=== PATIENT | male | born 1965 | race Caucasian/White ===

== ENCOUNTER → 2018-02-04 | Outpatient (CLI) | payer BC ==
--- NOTE | 2018-02-05 07:15 | US ---
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 EXAM MEASUREMENTS: Post Void Residual Volume: 11.01 mL. Post void dimensions measure 3.8 x 2.5 x 2.2 cm. Prevoid urinar y bladder is incompletely distended with no urinary bladder wall thickening as the urinary bladder wa ll measures 3 mm. * Normal Post Void Residual (less than 50ml): 11.01 IMPRESSION: There is no abnormal post void residual within the incompletely distended urinary shadia ivey
== END | disposition home or self-care (01) ==
LOC: RADUSWWP 16:01
PROVIDERS: ATTEND Family Medicine
DX: N40.1 Benign prostatic hyperplasia with lower urinary tract symptoms (principal)
CPT/HCPCS: 76857

== ENCOUNTER 2018-03-15 06:52 | Day surgery (SDC) | payer BC ==
[2018-03-13 14:59] VITALS: BMI 43.1
[~2018-03-15 06:52] MED LIST: LACTATED RINGERS 1,000 ML IV SCH
[2018-03-15 07:24] VITALS: RESP 16; TEMP 97.1
[2018-03-15] MEDS ORDERED: LIDOCAINE 1% 20 ML VIAL (10MG/ML) FOR IV START SQ ONE (07:25)
[2018-03-15 07:27] LABS: Glucose,Whole Blood 85 mg/dL (75-99)
[2018-03-15] MEDS ORDERED: PROPOFOL 10 MG/ML 20 ML VIAL IV ONE (08:11)
[2018-03-15] MEDS ORDERED: LIDOCAINE 1% INJ 10MG/ML (20 ML MDV) ONE (08:11)
--- NOTE | 2018-03-15 08:27 | P.PCN ---
Date of Procedure: 03/15/18 Procedure(s) Performed: BRIEF HISTORY: Patient is a 52-year-old pleasant white male, scheduled for an elective colonoscopy as a part of screening for colorectal neoplasia. PROCEDURE PERFORMED: Colonoscopy with biopsy. PREOPERATIVE DIAGNOSIS: Screening for colon cancer. IV sedation per Anesthesia. PROCEDURE: After informed consent was obtained, the patient, was brought into the endoscopy unit. IV sedation was administered by Anesthesia under continuous monitoring. Digital rectal examination was normal. Initially the Olympus CF- 160 flexible video colonoscope was then inserted in the rectum, gradually advanced into the cecum without any difficulty. Careful examination was performed as the scope was gradually being withdrawn. Ileocecal valve and the appendiceal orifice were visualized and appeared normal. Prep was excellent. Mucosa of the cecum, ascending colon, transverse colon, descending colon appeared normal. In the sigmoid colon there was a 2-3 mm sessile polyp removed by cold biopsy. In the proximal rectum there was a 3-4 mm sessile polyp removed by cold biopsy. Rest of the sigmoid colon, and rectum appeared normal. Retroflexion was performed in the rectum and no lesions were seen. The patient tolerated the procedure well. IMPRESSION: 2-3 mm sessile sigmoid colon polyp status post removal by cold biopsy 3-4 mm proximal rectal polyp status post removal by cold biopsy Rest of the colon appeared normal RECOMMENDATIONS: Findings of this examination were discussed with the patient as well as his family. He was advised to follow with the biopsy results. If the biopsy shows adenoma he can have a repeat colonoscopy in 5 years.
[2018-03-15 08:42] LABS: Glucose,Whole Blood 76 mg/dL (75-99)
[2018-03-15 08:52] VITALS: BP 116/70; PULSE 66
== END 2018-03-15 09:10 | disposition home or self-care (01) ==
LOC: ORWHC2ENDO 06:52
PROVIDERS: ATTEND Internal Medicine Gastroenterology
DX: Z12.11 Encounter for screening for malignant neoplasm of colon (principal); D12.5 Benign neoplasm of sigmoid colon; D12.8 Benign neoplasm of rectum; E11.9 Type 2 diabetes mellitus without complications; I10 Essential (primary) hypertension; E78.5 Hyperlipidemia, unspecified; G47.33 Obstructive sleep apnea (adult) (pediatric); Z79.4 Long term (current) use of insulin; Z79.899 Other long term (current) drug therapy
CPT/HCPCS: 88305; 45380; J2001; J2704

== ENCOUNTER 2024-01-26 02:19 | Inpatient (IN) | payer BC, OTHER ==
[2024-01-26 02:48] LABS: Glucose,Whole Blood 338 mg/dL (70-110)
--- NOTE | 2024-01-26 02:56 | ED ---
Neuro HPI - General Chief Complaint: Neuro Symptoms/Deficit Stated Complaint: Numbness, weakness in legs and arm Time Seen by Provider: 01/26/24 02:41 Source: patient Mode of arrival: wheelchair Limitations: no limitations - History of Present Illness Is the patient presenting with stroke symptoms?: Yes Last Known Well Date: 01/24/24 Last Known Well Time: 13:00 -: hour(s) Initial Comments: This patient is a 58-year-old man who presents to have evaluation for what he suspects is a stroke. The patient states that his last known well time was January 23 at just afternoon. He states that he started feeling numb on the left side of his face his left arm and left leg. The patient states that he also was having a difficult time walking. He states that while he was watching the football game that night the symptoms became more noticeable than in the afternoon. The patient had actually fallen at home and has he states a couple of abrasions. He does not believe that any other injuries occurred. When the symptoms had not resolved he decided to come in [facility] for further evaluation. Patient relates that he has history of hypertension and diabetes but that these conditions have not been treated for approximately 2 years as he lost his insurance when he left his previous job. Location: left face, left arm, left leg History of same: No Place: home Severity: mild Quality: numb Improves With: none Worsens With: none On Anticoagulants: No Associated Symptoms: denies other symptoms Treatments Prior to Arrival: none - Related Data Home Medications: Previous Rx's Medication Instructions Recorded Aspirin 81 mg PO DAILY tab 01/30/24 Atorvastatin [Lipitor] 80 mg PO HS #30 tab 01/30/24 Clopidogrel [Plavix] 75 mg PO DAILY #21 tab 01/30/24 Insuln Asp Prt/Insulin Aspart 22 unit SQ AC-LUNCH #1 each 01/30/24 [NovoLOG MIX 70-30 VIAL] Insuln Asp Prt/Insulin Aspart 38 unit SQ AC-BID #1 each 01/30/24 [NovoLOG MIX 70-30 VIAL] Lisinopril-Hctz 20-12.5 mg 1 each PO BID #60 tab 01/30/24 [Zestoretic 20-12.5] Metoprolol Tartrate [Lopressor] 50 mg PO BID #60 tab 01/30/24 Naproxen [Naprosyn] 250 mg PO TID PRN #30 tab 01/30/24 metFORMIN HCL [Glucophage] 1,000 mg PO BID-W/MEALS #60 tab 01/30/24 Allergies/Adverse Reactions: Allergies Allergy/AdvReac Type Severity Reaction Status Date / Time No Known Allergies Allergy Verified 01/26/24 09:06 Review of Systems ROS Statement: Those systems with pertinent positive or pertinent negative responses have been documented in the HPI. ROS Other: All systems not noted in ROS Statement are negative. Constitutional: Denies: fever, chills, weakness Eyes: Denies: eye pain, vision change Respiratory: Denies: cough, dyspnea Cardiovascular: Denies: chest pain, palpitations, orthopnea, edema, syncope Gastrointestinal: Denies: abdominal pain, nausea, vomiting, diarrhea, melena, hematochezia Genitourinary: Denies: dysuria, hematuria Musculoskeletal: Denies: back pain Skin: Denies: rash Neurological: Reports: numbness. Denies: headache, weakness, confusion General Exam Limitations: no limitations General appearance: alert, in no apparent distress Head exam: Present: atraumatic, normocephalic Eye exam: Present: normal appearance. Absent: scleral icterus, conjunctival injection ENT exam: Present: normal oropharynx Neck exam: Present: normal inspection, full ROM Respiratory exam: Present: normal lung sounds bilaterally. Absent: respiratory distress, wheezes, rales, rhonchi, stridor, accessory muscle use Cardiovascular Exam: Present: regular rate, normal rhythm, normal heart sounds. Absent: systolic murmur, diastolic murmur, rubs, gallop GI/Abdominal exam: Present: soft. Absent: distended, tenderness, guarding, rebound, rigid, mass Extremities exam: Present: normal inspection, normal capillary refill. Absent: pedal edema, calf tenderness Back exam: Present: normal inspection. Absent: CVA tenderness (R), CVA tenderness (L) Neurological exam: Present: alert, oriented X3, CN II-XII intact. Absent: motor sensory deficit Psychiatric exam: Present: normal affect Skin exam: Present: warm, dry, intact, normal color. Absent: rash Stroke MDM - Lab Data Result diagrams: 01/27/24 13:19 01/26/24 02:58 Lab Results 12/07/24 12/07/24 12/07/24 Range/Units 02:46 02:58 02:58 WBC 8.5 (3.8-10.6) k/uL RBC 5.09 (4.30-5.90) m/uL Hgb 16.1 (13.0-17.5) gm/dL Hct 47.5 (39.0-53.0) % MCV 93.2 (80.0-100.0) fL MCH 31.6 (25.0-35.0) pg MCHC 33.9 (31.0-37.0) g/dL RDW 12.2 (11.5-15.5) % Plt Count 229 (150-450) k/uL MPV 7.2 Neutrophils % 57 % Lymphocytes % 35 % Monocytes % 6 % Eosinophils % 1 % Basophils % 0 % Neutrophils # 4.9 (1.3-7.7) k/uL Lymphocytes # 2.9 (1.0-4.8) k/uL Monocytes # 0.5 (0-1.0) k/uL Eosinophils # 0.1 (0-0.7) k/uL Basophils # 0.0 (0-0.2) k/uL PT 10.1 (10.0-12.5) sec INR 0.9 (<1.2) APTT 22.6 (22.0-30.0) sec Sodium (137-145) mmol/L Potassium (3.5-5.1) mmol/L Chloride (98-107) mmol/L Carbon Dioxide (22-30) mmol/L Anion Gap mmol/L BUN (9-20) mg/dL Creatinine (0.66-1.25) mg/dL Est GFR (CKD-EPI)AfAm (>60 ml/min/1.73 sqM) Est GFR (CKD-EPI)NonAf (>60 ml/min/1.73 sqM) Glucose (74-99) mg/dL POC Glucose (mg/dL) 338 H (70-110) mg/dL POC Glu Production [employer] Sprayer ID [address] Glu mg/dL mg/dL Hemoglobin A1c (<=6.0) % Calcium (8.4-10.2) mg/dL Total Bilirubin (0.2-1.3) mg/dL AST (17-59) U/L ALT (4-49) U/L Alkaline Phosphatase (38-126) U/L Creatine Kinase (55-170) U/L Troponin I (0.000-0.034) ng/mL Total Protein (6.3-8.2) g/dL Albumin (3.5-5.0) g/dL TSH (0.465-4.680) mIU/L 01/26/24 01/26/24 01/26/24 Range/Units 02:58 02:58 02:58 WBC (3.8-10.6) k/uL RBC (4.30-5.90) m/uL Hgb (13.0-17.5) gm/dL Hct (39.0-53.0) % MCV (80.0-100.0) fL MCH (25.0-35.0) pg MCHC (31.0-37.0) g/dL RDW (11.5-15.5) % Plt Count (150-450) k/uL MPV Neutrophils % % Lymphocytes % % Monocytes % % Eosinophils % % Basophils % % Neutrophils # (1.3-7.7) k/uL Lymphocytes # (1.0-4.8) k/uL Monocytes # (0-1.0) k/uL Eosinophils # (0-0.7) k/uL Basophils # (0-0.2) k/uL PT (10.0-12.5) sec INR (<1.2) APTT (22.0-30.0) sec Sodium 130 L (137-145) mmol/L Potassium 3.8 (3.5-5.1) mmol/L Chloride 99 (98-107) mmol/L Carbon Dioxide 23 (22-30) mmol/L Anion Gap 8 mmol/L BUN 13 (9-20) mg/dL Creatinine 0.75 (0.66-1.25) mg/dL Est GFR (CKD-EPI)AfAm >90 (>60 ml/min/1.73 sqM) Est GFR (CKD-EPI)NonAf >90 (>60 ml/min/1.73 sqM) Glucose 347 H (74-99) mg/dL POC Glucose (mg/dL) (70-110) mg/dL POC Glu Production [employer] Sprayer ID Est[address] Glu mg/dL 335 mg/dL Hemoglobin A1c 13.3 H (<=6.0) % Calcium 8.9 (8.4-10.2) mg/dL Total Bilirubin 0.7 (0.2-1.3) mg/dL AST 28 (17-59) U/L ALT 24 (4-49) U/L Alkaline Phosphatase 105 (38-126) U/L Creatine Kinase 421 H (55-170) U/L Troponin I <0.012 (0.000-0.034) ng/mL Total Protein 6.7 (6.3-8.2) g/dL Albumin 4.0 (3.5-5.0) g/dL TSH (0.465-4.680) mIU/L 01/26/24 01/26/24 Range/Units 02:58 06:07 WBC (3.8-10.6) k/uL RBC (4.30-5.90) m/uL Hgb (13.0-17.5) gm/dL Hct (39.0-53.0) % MCV (80.0-100.0) fL MCH (25.0-35.0) pg MCHC (31.0-37.0) g/dL RDW (11.5-15.5) % Plt Count (150-450) k/uL MPV Neutrophils % % Lymphocytes % % Monocytes % % Eosinophils % % Basophils % % Neutrophils # (1.3-7.7) k/uL Lymphocytes # (1.0-4.8) k/uL Monocytes # (0-1.0) k/uL Eosinophils # (0-0.7) k/uL Basophils # (0-0.2) k/uL PT (10.0-12.5) sec INR (<1.2) APTT (22.0-30.0) sec Sodium (137-145) mmol/L Potassium (3.5-5.1) mmol/L Chloride (98-107) mmol/L Carbon Dioxide (22-30) mmol/L Anion Gap mmol/L BUN (9-20) mg/dL Creatinine (0.66-1.25) mg/dL Est GFR (CKD-EPI)AfAm (>60 ml/min/1.73 sqM) Est GFR (CKD-EPI)NonAf (>60 ml/min/1.73 sqM) Glucose (74-99) mg/dL POC Glucose (mg/dL) 294 H (70-110) mg/dL POC Glu Production Metal Sprayer ID Hayden [address] Glu mg/dL mg/dL Hemoglobin A1c (<=6.0) % Calcium (8.4-10.2) mg/dL Total Bilirubin (0.2-1.3) mg/dL AST (17-59) U/L ALT (4-49) U/L Alkaline Phosphatase (38-126) U/L Creatine Kinase (55-170) U/L Troponin I (0.000-0.034) ng/mL Total Protein (6.3-8.2) g/dL Albumin (3.5-5.0) g/dL TSH 3.000 (0.465-4.680) mIU/L - Medical Decision Making This patient is 58-year-old man presenting with symptoms concerning for possible acute ischemic stroke. The patient is worked up here but is outside of the window for thrombolytics. The patient initial CT per my interpretation does not show acute bony injury, acute intracranial hemorrhage or mass effect. There is no definite stroke. The patient will be admitted for further neurology workup. The patient had chest x-ray which I interpreted as negative for acute infiltrate, pneumothorax, congestive heart failure Was pt. sent in by a medical professional or institution ([facility] Bassett, FLATWORK SUPERVISOR, urgent care, hospital, or fpc...) When possible be specific @ -[No] Did you speak to anyone other than the patient for history (EMS, parent, family, police, friend...)? What history was obtained from this source @ -[No] Did you review nursing and triage notes (agree or disagree)? Why? @ -[I reviewed and agree with nursing and triage notes] Were old charts reviewed (outside hosp., previous admission, EMS record, old EKG, old radiological studies, urgent care reports/EKG's, fpc records)? Report findings @ -[No old charts were reviewed] Differential Diagnosis (chest pain, altered mental status, abdominal pain women, abdominal pain men, vaginal bleeding, weakness, fever, dyspnea, syncope, headache, dizziness, GI bleed, back pain, seizure, CVA, palpatations, mental health, musculoskeletal)? @ -[Differential CVA Ischemic stroke, hemorrhagic stroke, brain tumor, atypical migraine, Wernicke's encephalopathy, seizure, multiple sclerosis, meningitis, encephalitis, hypoglycemia, Guillain-Sepulveda, electrolytes disturbance, myasthenia gravis.... This is not meant to be an all-inclusive list EKG interpreted by me (3pts min.). @ -[I interpreted as above] X-rays interpreted by me (1pt min.). @ -[I interpreted as above CT interpreted by me (1pt min.). @ -I interpreted as above U/S interpreted by me (1pt. min.). @ -[None done] What testing was considered but not performed or refused? (CT, X-rays, U/S, labs)? Why? @ -[None] What meds were considered but not given or refused? Why? @ -[None] Did you discuss the management of the patient with other professionals (professionals i.e. , PA, FLATWORK SUPERVISOR, lab, RT, psych nurse, sexual assault social worker, portable trackman, teacher, juvenile officer, manager of case)? Give summary @ -[Case discussed with admitting physician and treatment recommendations incorporated Was smoking cessation discussed for >3mins.? @ -[No] Was critical care preformed (if so, how long)? @ -[Yes, 30 minutes Were there social determinants of health that impacted care today? How? (Homelessness, low income, unemployed, alcoholism, drug addiction, transportation, low edu. Level, literacy, decrease access to med. care, penitentiary, rehab)? @ -[No] Was there de-escalation of care discussed even if they declined (Discuss DNR or withdrawal of care, Hospice)? DNR status @ -[No] What co-morbidities impacted this encounter? (DM, HTN, Smoking, COPD, CAD, Cancer, CVA, ARF, Chemo, Hep., AIDS, mental health diagnosis, sleep apnea, morbid obesity)? @ -[Diabetes, hypertension Was patient admitted / discharged? Hospital course, mention meds given and route, prescriptions, significant lab abnormalities, going to OR and other pertinent info. @ -[See above Undiagnosed new problem with uncertain prognosis? @ -[No] Drug Therapy requiring intensive monitoring for toxicity (Heparin, Nitro, Insulin, Cardizem)? @ -[No] Were any procedures done? @ -[No] Diagnosis/symptom? @ -[Suspected acute ischemic stroke versus TIA Acute hyperglycemia Acute, or Chronic, or Acute on Chronic? @ -[Acute Uncomplicated (without systemic symptoms) or Complicated (systemic symptoms)? @ -[Uncomplicated Side effects of treatment? @ -[No] Exacerbation, Progression, or Severe Exacerbation? @ -[No] Poses a threat to life or bodily function? How? (Chest pain, USA, ID, pneumonia, PE, COPD, DKA, ARF, appy, cholecystitis, CVA, Diverticulitis, Homicidal, S uicidal, threat to staff... and all critical care pts) @ -[Yes, requires further neurology evaluation and treatment - EKG Data -: EKG Interpreted by Me EKG shows normal: sinus rhythm, axis (Normal), intervals (Normal), QRS complexes (Normal) Rate: normal (95 bpm) Interpretation: nonspecific ST-T wave changes Past Medical History Past Medical History: Diabetes Mellitus, Hyperlipidemia, Hypertension, Skin Disorder, Sleep Apnea/CPAP/BIPAP Additional Past Medical History / Comment(s): ECZEMA. NO TX FOR SLEEP APNEA YE T. History of Any Multi-Drug Resistant Organisms: None Reported Additional Past Surgical History / Comment(s): DENTAL IMPLANTS Past Anesthesia/Blood Transfusion Reactions: Motion Sickness Past Psychological History: No Psychological Hx Reported Smoking Status: Never smoker Past Alcohol Use History: Abuse, Daily Past Drug Use History: None Reported - Past Family History Father Family Medical History: Cancer Additional Family Medical History / Comment(s): PROSTATE, URETER CANCER Course Vital Signs 01/26/24 01/26/24 01/26/24 02:23 02:58 03:25 Temperature 97.7 F 98.0 F 98.2 F Pulse Rate 107 H 95 86 Respiratory 16 16 16 Rate Blood Pressure 213/109 182/83 170/78 O2 Sat by Pulse 98 94 L 95 Oximetry 01/26/24 01/26/24 01/26/24 03:44 03:55 04:12 Temperature Pulse Rate 84 84 79 Respiratory 16 16 18 Rate Blood Pressure 165/99 159/91 151/81 O2 Sat by Pulse 94 L 93 L 94 L Oximetry 01/26/24 01/26/24 01/26/24 04:25 04:40 05:10 Temperature Pulse Rate 74 71 79 Respiratory 16 16 18 Rate Blood Pressure 160/80 146/73 193/89 O2 Sat by Pulse 94 L 96 98 Oximetry 01/26/24 01/26/24 01/26/24 05:40 07:06 07:30 Temperature 98.2 F Pulse Rate 71 68 80 Respiratory 16 16 18 Rate Blood Pressure 150/75 161/76 151/95 O2 Sat by Pulse 95 93 L 96 Oximetry 01/26/24 01/26/24 01/26/24 11:01 14:25 16:50 Temperature Pulse Rate 64 67 70 Respiratory 16 18 18 Rate Blood Pressure 143/82 167/93 174/89 O2 Sat by Pulse 96 95 96 Oximetry 01/26/24 01/26/24 01/26/24 18:10 19:10 21:02 Temperature 98.0 F Pulse Rate 73 75 73 Respiratory 20 16 15 Rate Blood Pressure 153/77 168/86 166/86 O2 Sat by Pulse 96 97 97 Oximetry Disposition Clinical Impression: Cerebrovascular accident (CVA), Hyperglycemia due to diabetes mellitus Disposition: ADMITTED IP TO THIS [facility] Condition: Fair Is patient prescribed a controlled substance at d/c from ED?: No
[2024-01-26 03:11] LABS: Basophils % (A) 0 %; Eosinophils # (A) 0.1 k/uL (0-0.7); Eosinophils % (A) 1 %; HCT 47.5 % (39.0-53.0); HGB 16.1 gm/dL (13.0-17.5); Lymphocytes # (A) 2.9 k/uL (1.0-4.8); Lymphocytes % (A) 35 %; MCH 31.6 pg (25.0-35.0); MCHC 33.9 g/dL (31.0-37.0); MCV 93.2 fL (80.0-100.0); Mean Platelet Volume 7.2; Monocytes # (A) 0.5 k/uL (0-1.0); Monocytes % (A) 6 %; Neutrophils # (A) 4.9 k/uL (1.3-7.7); Neutrophils % (A) 57 %; Platelet Count 229 k/uL (150-450); RBC 5.09 m/uL (4.30-5.90); RDW 12.2 % (11.5-15.5); WBC 8.5 k/uL (3.8-10.6)
[2024-01-26] MEDS: LABETALOL 5 MG/ML VIAL MDV IVP STA (03:22)
[2024-01-26 03:23] LABS: INR 0.9 (<1.2); Partial Thromboplastin Time 22.6 sec (22.0-30.0); Prothrombin Time 10.1 sec (10.0-12.5)
[2024-01-26] MEDS: SODIUM CHLORIDE 0.9% 500 ML 500 ML IV STA (03:24)
[2024-01-26 03:30] LABS: ALT 24 U/L (4-49); AST 28 U/L (17-59); African American GFR (CKD) >90 (>60 ml/min/1.73 sqM); Alkaline Phosphatase 105 U/L (38-126); Anion Gap 8 mmol/L; Blood Urea Nitrogen 13 mg/dL (9-20); Calcium 8.9 mg/dL (8.4-10.2); Carbon Dioxide 23 mmol/L (22-30); Chloride 99 mmol/L (98-107); Creatine Kinase 421 U/L (55-170); Glucose 347 mg/dL (74-99); Non-African American GFR(CKD) >90 (>60 ml/min/1.73 sqM); Potassium 3.8 mmol/L (3.5-5.1); Sodium 130 mmol/L (137-145); Total Bilirubin 0.7 mg/dL (0.2-1.3); Total Protein 6.7 g/dL (6.3-8.2)
--- NOTE | 2024-01-26 04:33 | XR ---
EXAM: XR Chest, 2 Views CLINICAL HISTORY: ITS.REASON XR Reason: altered mental status TECHNIQUE: Frontal and lateral views of the chest. COMPARISON: No relevant prior studies available. FINDINGS: Lungs: No pneumonia. Pleural space: Unremarkable. No pneumothorax. Heart: Unremarkable. No cardiomegaly. Mediastinum: Unremarkable. Normal mediastinal contour. Bones/joints: Unremarkable. No acute fracture. IMPRESSION: No pneumonia.
--- NOTE | 2024-01-26 04:35 | CT ---
EXAM: CT Head Without Intravenous Contrast CLINICAL HISTORY: ITS.REASON CT Reason: Neuro deficit, acute, stroke suspected TECHNIQUE: Axial computed tomography images of the head/brain without intravenous contrast. CTDI is 49.2 mGy and DLP is 1243.4 mGy-cm. This CT exam was performed using one or more of the following dose reduction techniques: automated exposure control, adjustment of the mA and/or kV according to patient size, and/or use of iterative reconstruction technique. COMPARISON: No relevant prior studies available. FINDINGS: No acute intracranial hemorrhage. No midline shift or mass effect. The territorial palomares-white matter differentiation is maintained throughout. The ventricles and sulci are commensurate with age. The visualized orbits appear grossly unremarkable. The calvarium is intact. The visualized paranasal sinuses and mastoid air cells are grossly clear. IMPRESSION: No acute intracranial hemorrhage, midline shift, or mass effect.
[2024-01-26] MEDS: INSULIN REGULAR 100 UNIT/ML VIAL (IV) SQ STA (04:57)
[2024-01-26] MEDS: ASPIRIN 81 MG PO STA (04:57)
[2024-01-26 06:09] LABS: Glucose,Whole Blood 294 mg/dL (70-110)
[2024-01-26] MEDS: SODIUM CHLORIDE 0.9% 1,000 ML IV SCH (07:03)
[2024-01-26] MEDS: metFORMIN 500 MG TAB PO SCH (07:28)
[2024-01-26] MEDS: hydroCHLOROthiazide 25 MG TAB PO SCH (08:27)
[2024-01-26] MEDS: atenoloL 25 MG TAB PO SCH (08:27)
[2024-01-26] MEDS: FAMOTIDINE 20 MG/2 ML VIAL IV SCH (08:28)
[2024-01-26] MEDS: lisinopriL 10 MG TAB PO SCH (08:28)
[2024-01-26 11:01] LABS: Glucose,Whole Blood 296 mg/dL (70-110)
--- NOTE | 2024-01-26 13:55 | US ---
EXAMINATION TYPE: US carotid duplex BILAT DATE OF EXAM: 01/26/2024 COMPARISON: NONE CLINICAL INDICATION: Male, 58 years old with history of left sided weakness; Left side weakness. HTN. No prev hx TIA or stroke. Additional History: TECHNIQUE: Grayscale, color Doppler and spectral Doppler evaluation of the bilateral carotid systems and vertebral arteries. Indirect Doppler criteria was utilized. FINDINGS: EXAM MEASUREMENTS: RIGHT: Peak Systolic Velocity (PSV) cm/sec ----- Right CCA: 120.5 ----- Right ICA: 96.9 ----- Right ECA: 147.6 ICA/CCA ratio: 0.8 RIGHT: End Diastole cm/sec ----- Right CCA: 12.3 ----- Right ICA: 11.5 ----- Right ECA: 7.7 LEFT: Peak Systolic Velocity (PSV) cm/sec ----- Left CCA: 107.6 ----- Left ICA: 122.1 ----- Left ECA: 125.3 ICA/CCA ratio: 1.1 LEFT: End Diastole cm/sec ----- Left CCA: 13.9 ----- Left ICA: 12.3 ----- Left ECA: 5.8 VERTEBRALS (direction of flow): Right Vertebral: Antegrade Left Vertebral: Antegrade Rhythm: Normal AIDS SOCIAL WORKER NOTES: Bilateral wall thickening. Elevated CCA velocities and right ECA. Color Doppler imaging shows patency with blood flow throughout the carotid artery. Spectral waveforms are within normal limits. IMPRESSION: 1. Mild bilateral plaque in the carotid bifurcations bilaterally. 2. No significant stenosis within the carotid bifurcations or proximal internal carotid arteries base d on peak systolic velocities and ratios as well as grayscale and color imaging. Criteria for Assigning % of Stenosis / Diameter reduction (Estimation based on the indirect measurements of the internal carotid artery velocities (ICA PSV). 1. Normal (no stenosis)=ICA PSV < 125 cm/s: ratio < 2.0: ICA EDV<40 cm/s. 2. Less than 50% stenosis=ICA PSV < 125 cm/s: ratio < 2.0: ICA EDV<40 cm/s. 3. 50 to 69% stenosis=ICA PSV of 125 to 230 cm/s: ration 2.0 ? 4.0: ICA EDV 40-100 cm/s. 4. Greater than 70% stenosis to near occlusion= ICA PSV > 230 cm/s: ratio > 4.0: ICA EDV > 100 cm/s. 5. Near occlusion= ICA PSV velocities may be low or undetectable: variable ratio and ICA EDV. 6. Total occlusion=unable to detect flow. [facility], , 01/26/2024 1:53 PM
--- NOTE | 2024-01-26 14:57 | P.CNNES ---
History of Present Illness Consult date: 01/26/24 Requesting physician: Aleksey Greenwood Reason for Consult: left sided deficity, suspected ischemic stroke History of Present Illness: This is a 58-year-old gentleman with history of type 2 diabetes, hypertension who is not on regular medication because of financial hardship, obesity who present emergency department because of numbness over the left side. Patient stated that his symptoms began this past in which he felt he is having numbness over the left upper lower extremity also involving the entire left half of the face. He stated that his symptoms progressively got worse that he is having weakness on the left side. Denies any prior history of stroke in the past. He states that he has type 2 diabetes and is supposed to be on Lantus as well as that he has hypertension but he is making very minimal money and get some of his medication from [place] where his mother resides. He does not check his blood pressure at home since he does not have blood pressure cuff. He denies any tobacco use. Denies being on any antiplatelet. He has not followed up with primary care physician in 3 years since he does not have health insurance. Some of the workup during this hospital visit consisted of: Initial serum glucose is 347. I reviewed the rest of the lab workup. CT of the head is reported as no acute intracranial hemorrhage, midline shift or mass effect. I personally reviewed the CT and feel the patient has acute to subacute stroke over the right thalamus and it seems more subacute. Review of Systems per HPI. Past Medical History Past Medical History: Diabetes Mellitus, Hyperlipidemia, Hypertension, Skin Disorder, Sleep Apnea/CPAP/BIPAP Additional Past Medical History / Comment(s): ECZEMA. NO TX FOR SLEEP APNEA YET. History of Any Multi-Drug Resistant Organisms: None Reported Additional Past Surgical History / Comment(s): DENTAL IMPLANTS Past Anesthesia/Blood Transfusion Reactions: Motion Sickness Past Psychological History: No Psychological Hx Reported Smoking Status: Never smoker Past Alcohol Use History: Abuse, Daily Past Drug Use History: None Reported - Past Family History Father Family Medical History: Cancer Additional Family Medical History / Comment(s): PROSTATE, URETER CANCER Medications and Allergies Home Medications Medication Instructions Recorded Confirmed Type No Known Home Medications 01/26/24 01/26/24 History Allergies Allergy/AdvReac Type Severity Reaction Status Date / Time No Known Allergies Allergy Verified 01/26/24 09:06 Physical Examination - Vital Signs Vital Signs: Vital Signs Temp Pulse Resp BP Pulse Ox 01/26/24 14:25 67 18 167/93 95 01/26/24 11:01 64 16 143/82 96 01/26/24 07:30 80 18 151/95 96 01/26/24 07:06 98.2 F 68 16 161/76 93 L 01/26/24 05:40 71 16 150/75 95 01/26/24 05:10 79 18 193/89 98 01/26/24 04:40 71 16 146/73 96 01/26/24 04:25 74 16 160/80 94 L 01/26/24 04:12 79 18 151/81 94 L 01/26/24 03:55 84 16 159/91 93 L 01/26/24 03:44 84 16 165/99 94 L 01/26/24 03:25 98.2 F 86 16 170/78 95 01/26/24 02:58 98.0 F 95 16 182/83 94 L 01/26/24 02:23 97.7 F 107 H 16 213/109 98 Intake and Output 01/25/24 01/26/24 01/26/24 22:59 06:59 14:59 Other: Weight 104.326 kg GENERAL: The patient is lying in bed and is not in acute distress. NEUROLOGICAL: Higher mental function: The patient is awake, alert, oriented to self, place and time. Patient is following commands. No aphasia and no neglect. Cranial nerves: The pupils are round, equal and reactive to light and ac commodation. Visual patton are full to confrontation throughout. Extraocular movement is intact no nystagmus is noted. Facial sensation is normal to touch throughout. The facial strength is normal throughout. Hearing is normal bilaterally to hand rub. Tongue is midline and moved [id number] without any difficulty. No dysarthria is noted. Shoulder shrug is normal bilaterally. Motor: The strength is 5 over 5 throughout. Normal tone and bulk. Cerebellum: Has ataxia over left finger to nose. Sensation: Sensation is normal to touch throughout. Reflexes (right/left): 2+ throughout. Plantars are mute bilaterally. Results - Laboratory Findings CBC and BMP: 01/26/24 02:58 01/26/24 02:58 Abnormal Lab Findings: Abnormal Labs 01/26/24 01/26/24 01/26/24 02:46 02:58 06:07 Sodium 130 L Glucose 347 H POC Glucose (mg/dL) 338 H 294 H Creatine Kinase 421 H 01/26/24 10:59 Sodium Glucose POC Glucose (mg/dL) 296 H Creatine Kinase Assessment and Plan Assessment: This is a 58-year-old gentleman who present emergency department because of progressive numbness over the left side including the face left upper and lower extremity and he noticed that he is having weakness on the left side. He states he has underlying history of diabetes type 2 as well as hypertension and he is not taking medication on a regular basis since he is having financial issues and has not seen primary care physician in 3 years since he does not have health insurance. Acute to subacute stroke and I personally reviewed the CT and I felt the stroke was over the right thalamus. Patient is COVID who numbness over the left side as well as weakness. On examination he does not have any weakness that I was able to appreciate but he had ataxia [id number] on the left. I viewed thrombolytics since he is outside the window and the risk outweigh the benefit. Etiology of stroke is his risk factors (HTN, DM, obesity) Hypertension urgent Diabetes type 2 Hypertension Medication noncompliance because of financial issues Morbid obesity Plan: Patient was given aspirin 324 mg once today by the ED physician was started on aspirin 325 mg daily. I went down on the aspirin to 81 mg daily and I started the patient also on Plavix 75 mg daily. Prior to this the patient was not on any antiplatelet. Patient started on Lipitor 80 mg nightly Carotid duplex, 2D echo, lipid panel I ordered MRI of the brain, hemoglobin A1c, TSH. Continue neurochecks Cardiac monitoring PT OT and PASTER OPERATOR are consulted Will defer the rest of the medical management to primary and other specialist Recommend registered nurse hh case manager to be consulted to address to help out patient obtain health insurance. Or provide him with the resources so he can obtain his medication. Next DVT prophylaxis I started the patient on subcu heparin 5000 units every 12 hours Thank you for the consultation Time with Patient: Greater than 30
[2024-01-26] MEDS: CLOPIDOGREL 75 MG TAB PO SCH (16:00)
--- NOTE | 2024-01-26 17:12 | P.HPIM ---
History of Present Illness H&P Date: 01/26/24 Chief Complaint: Left-sided weakness This is a 58-year-old patient follows with Dr. Ray. Has known history of diabetes hypertension hyperlipidemia and sleep apnea. Does not use CPAP. Also does not take his medications because of financial issues. Does take a reduced dose of Lantus sometimes which she takes from his mother. 2 days ago patient startedwith some numbness and weakness on the left side. It progressively got a bit worse. Affecting the left arm and left leg. Some abnormal sensation left face. No change in speech vision or any headache. A lready decided to come in. Initial CT scan unremarkable Review of systems: GEN.: None EYES: None HEENT: None NECK: None RESPIRATORY: None CARDIOVASCULAR: None GASTROINTESTINAL: None GENITOURINARY: None MUSCULOSKELETAL: None LYMPHATICS: None HEMATOLOGICAL: None PSYCHIATRY: None NEUROLOGICAL: As above Social history: Lives alone. Does not smoke. For last 1 year close to drinking 1 pitcher of be er a day. Prior to that was drinking 2-3 beers a day. Physical examination: VITAL SIGNS: 98.2, 68, 18, 161 x 96, 93% room air GENERAL: BMI 42.1, reclining bed awake comfortable. EYES: Pupils equal. Conjunctiva maria eugenia l. HEENT: External appearance of nose and ears normal, oral cavity grossly normal. NECK: JVD not raised; masses not palpable. HEART: First and second heart sounds are normal; no edema. LUNGS: Respiratory rate normal; clear to auscultation. ABDOMEN: Soft, nontender, liver spleen not palpable, no masses palpable. PSYCH: Alert and oriented x3; mood and affect maria eugenia l. MUSCULOSKELETAL:No Clubbing/cyanosis;muscles-grossly intact NEUROLOGICAL: Some altered sensation on the left side of the face. Power in the left arm 4/5. Left leg 4/5.. LYMPHATICS: No lymph nodes palpable in the axilla and neck INVESTIGATIONS, reviewed in the clinical context: January 25: White count 8.5 hemoglobin 16.1 platelets 229 sodium 130 potassium 3.8 creatinine 0.75 blood glucose 347 Troponin I 0.012 x 3 TSH 3.0 EKG tracing personally reviewed by me-sinus rhythm. Nonspecific ST-T wave changes. Chest x-ray film personally reviewed by me-unremarkable CT brain: Unremarkable Assessment plan: -Clinically acute stroke. Initial CT scan is negative. Aspirin. Plavix Lipitor. Carotid Doppler. 2D echo. MR brain Neurology following PT OT. -Essential hypertension, uncontrolled Lisinopril hydrochlorothiazide 20/12.5 twice daily -Diabetes mellitus type 2, uncontrolled Patient not been taking his medications/insulin regularly. Does bother sometimes from his mother. Levemir 36 units. Scheduled insulin 10 with meals. Glucophage -Hyperlipidemia Lipitor -Noncompliance with medication due to financial issues Consult dialysis social worker Discussed with patient. Questions answered. Given the complexity and severity of patient's condition expect the patient to be in the hospital at least for 2 overnights Past Medical History Past Medical History: Diabetes Mellitus, Hyperlipidemia, Hypertension, Skin Disorder, Sleep Apnea/CPAP/BIPAP Additional Past Medical History / Comment(s): ECZEMA. NO TX FOR SLEEP APNEA YET. History of Any Multi-Drug Resistant Organisms: None Reported Additional Past Surgical History / Comment(s): DENTAL IMPLANTS Past Anesthesia/Blood Transfusion Reactions: Motion Sickness Past Psychological History: No Psychological Hx Reported Smoking Status: Never smoker Past Alcohol Use History: Abuse, Daily Past Drug Use History: None Reported - Past Family History Father Family Medical History: Cancer Additional Family Medical History / Comment(s): PROSTATE, URETER CANCER Medications and Allergies Home Medications Medication Instructions Recorded Confirmed Type No Known Home Medications 01/26/24 01/26/24 History Allergies Allergy/AdvReac Type Severity Reaction Status Date / Time No Known Allergies Allergy Verified 01/26/24 09:06 Physical Exam Vitals: Vital Signs Temp Pulse Resp BP Pulse Ox 01/26/24 11:01 64 16 143/82 96 01/26/24 07:30 80 18 151/95 96 01/26/24 07:06 98.2 F 68 16 161/76 93 L 01/26/24 05:40 71 16 150/75 95 01/26/24 05:10 79 18 193/89 98 01/26/24 04:40 71 16 146/73 96 01/26/24 04:25 74 16 160/80 94 L 01/26/24 04:12 79 18 151/81 94 L 01/26/24 03:55 84 16 159/91 93 L 01/26/24 03:44 84 16 165/99 94 L 01/26/24 03:25 98.2 F 86 16 170/78 95 01/26/24 02:58 98.0 F 95 16 182/83 94 L 01/26/24 02:23 97.7 F 107 H 16 213/109 98 Intake and Output 01/25/24 01/26/24 01/26/24 22:59 06:59 14:59 Other: Weight 104.326 kg Results CBC & Chem 7: 01/26/24 02:58 01/26/24 02:58 Labs: Abnormal Lab Results - Last 24 Hours (Table) 01/26/24 01/26/24 01/26/24 Range/Units 02:46 02:58 06:07 Sodium 130 L (137-145) mmol/L Glucose 347 H (74-99) mg/dL POC Glucose (mg/dL) 338 H 294 H (70-110) mg/dL Creatine Kinase 421 H (55-170) U/L 01/26/24 Range/Units 10:59 Sodium (137-145) mmol/L Glucose (74-99) mg/dL POC Glucose (mg/dL) 296 H (70-110) mg/dL Creatine Kinase (55-170) U/L
[2024-01-26] MEDS ORDERED: INSULIN ASPART (NovoLOG) 100 UNIT/ML VIAL SQ SCH (17:30)
[2024-01-26 17:31] LABS: Glucose,Whole Blood 301 mg/dL (70-110)
[2024-01-26] MEDS: lisinopriL 5 MG TAB PO STA (17:40)
--- NOTE | 2024-01-26 17:55 | XR ---
EXAMINATION TYPE: XR shoulder complete LT DATE OF EXAM: 01/26/2024 5:39 PM COMPARISON: None available. CLINICAL INDICATION: Male, 58 years old with history of fall in department; [facility] TECHNIQUE: XR shoulder complete LT; examined in AP, internally rotated and scapular Y projections. FINDINGS: No definite radiographic evidence of acute fracture or dislocation. Irregularity along the lateral hu meral head could reflect sequelae of chronic rotator cuff pathology. Mild glenohumeral and acromial c lavicular degenerative osteoarthritis. IMPRESSION: No definite acute fracture or dislocation. [facility], , 01/26/2024 5:52 PM
[2024-01-26] MEDS: INSULN ASP PRT/INSULIN ASPART 100 UNIT/ML 10 ML VIAL SQ SCH (18:18)
[2024-01-26] MEDS: ENOXAPARIN 40 MG/0.4 ML SYRINGE SQ SCH (18:19)
--- NOTE | 2024-01-26 19:17 | CT ---
EXAMINATION TYPE: CT brain wo con DATE OF EXAM: 01/26/2024 6:52 PM COMPARISON: Previous brain MRI study dated 01/29/2015.. CLINICAL INDICATION: Male, 58 years old with history of fall in department, Fall in hospital. No LOC, is on thinners starting today. TECHNIQUE: Brain: Axial CT images of the brain were obtained with coronal and sagittal reformats created and rev iewed. Contrast used: None. Oral contrast used: None. CT DLP: 1136.4 mGycm, Automated exposure control for dose reduction was used. FINDINGS: Brain: No acute intracranial hemorrhage, midline shift or significant acute mass effect. Left parietal scalp hematoma. No depressed calvarial fracture. No sizable extra-axial fluid collection. Ventricles and s ulci appear within normal limits. The cisterns are patent. There is an age-indeterminate region of in farction involving the right thalamus. Balderrama-white matter differentiation otherwise appears preserved. Paranasal sinuses and mastoid air cells appear patent. IMPRESSION: 1. No acute intracranial hemorrhage, midline shift or acute mass effect. 2. Age-indeterminate infarct in the right thalamus, new from prior brain MRI study dated 01/29/2015. [facility], , 01/26/2024 7:15 PM
[2024-01-26] MEDS: GABAPENTIN 300 MG CAP PO SCH (20:56)
[2024-01-26] MEDS: LISINOPRIL-HCTZ 20-12.5 MG 1 EACH TAB PO SCH (20:56)
[2024-01-26] MEDS: ATORVASTATIN 80 MG TAB PO SCH (20:56)
[2024-01-26] MEDS ORDERED: HEPARIN SODIUM,PORCINE 5,000 UNIT/ML 1 ML VIAL SQ SCH (21:00)
[2024-01-26] MEDS ORDERED: INSULIN DETEMIR (LEVEMIR) 100 UNIT/ML SYR SQ SCH (21:00)
[2024-01-27] MEDS: NAPROXEN 250 MG TAB PO PRN (05:00)
[2024-01-27 06:17] LABS: Glucose,Whole Blood 284 mg/dL (70-110)
[2024-01-27] MEDS: ASPIRIN 81 MG PO SCH (08:36)
[2024-01-27] MEDS ORDERED: ASPIRIN 325 MG TAB PO SCH (09:00)
--- NOTE | 2024-01-27 09:15 | P.GSCN ---
History of Present Illness Consult date: 01/27/24 Reason for Consult: left eye laceration History of present illness: this is a 58-year-old male who fell due to left-sided weakness. Patient struck his head on the floor. Patient's glasses cause a small laceration to his upper eyelid. Patient is currently being worked up by neurology for Tpossible CVA. Past Medical History Past Medical History: Diabetes Mellitus, Hyperlipidemia, Hypertension, Skin Disorder, Sleep Apnea/CPAP/BIPAP Additional Past Medical History / Comment(s): ECZEMA. NO TX FOR SLEEP APNEA YET. History of Any Multi-Drug Resistant Organisms: None Reported Additional Past Surgical History / Comment(s): DENTAL IMPLANTS Past Anesthesia/Blood Transfusion Reactions: Motion Sickness Past Psychological History: No Psychological Hx Reported Smoking Status: Never smoker Past Alcohol Use History: Abuse, Daily Past Drug Use History: None Reported - Past Family History Father Family Medical History: Cancer Additional Family Medical History / Comment(s): PROSTATE, URETER CANCER Medications and Allergies Home Medications Medication Instructions Recorded Confirmed Type No Known Home Medications 01/26/24 01/26/24 History Allergies Allergy/AdvReac Type Severity Reaction Status Date / Time No Known Allergies Allergy Verified 01/26/24 09:06 Surgical - Exam Vital Signs Temp Pulse Resp BP Pulse Ox 97.7 F 107 H 16 213/109 98 01/26/24 02:23 01/26/24 02:23 01/26/24 02:23 01/26/24 02:23 01/26/24 02:23 - General well developed, well nourished, no distress - Eyes small 3 mm laceration to left upper eyelid there is some periorbital edema and ecchymosis. PERRL - ENT normal pinna - Neck no masses - Abdomen Abdomen: soft, non tender Results - Labs 01/26/24 02:58 01/26/24 02:58 Abnormal Lab Results - Last 24 Hours (Table) 01/26/24 01/26/24 01/27/24 Range/Units 10:59 17:30 06:15 POC Glucose (mg/dL) 296 H 301 H 284 H (70-110) mg/dL Thyroid panel 01/26/24 Range/Units 02:58 TSH 3.000 (0.465-4.680) mIU/L Pituitary panel 01/26/24 Range/Units 02:58 TSH 3.000 (0.465-4.680) mIU/L Assessment and Plan Assessment: small left upper eyelid laceration. No surgical intervention is planned. If the patient has any vision issues and recommend ophthalmology consult.
--- NOTE | 2024-01-27 10:31 | P.CNOR ---
History of Present Illness - [facility] Consult date: 01/27/24 History of present illness: Patient is a 58-year-old male who presented to the hospital yesterday for evaluation due to strokelike symptoms. Patient is been admitted on the 3 S. cardiac floor and orthopedics has been consulted due to left shoulder pain status post fall in the hospital. Patient was seen at bedside this morning lying in the semirecumbent position. Patient states he did have a fall in the hospital over the past 12 hours and he landed on his left shoulder. Patient does note some improvement in pain since last night. He says he has been trying to move the left shoulder. Patient states most of the pain is located at the front of the shoulder without radiation of pain. Patient denies any collarbone pain or pain radiating down the left upper extremity. X-ray of the left shoulder is negative for any acute process. Negative for any dislocation or fracture. Some acromioclavicular joint osteoarthritis. Patient says pain medication has helped control symptoms somewhat. Patient denies any previous orthopedics shoulder surgery. Patient does note some weakness in left upper extremity however it has been the same since he had strokelike symptoms of few days ago. Patient denies any other orthopedic complaints at this time. Past Medical History Past Medical History: Diabetes Mellitus, Hyperlipidemia, Hypertension, Skin Disorder, Sleep Apnea/CPAP/BIPAP Additional Past Medical History / Comment(s): ECZEMA. NO TX FOR SLEEP APNEA YET. History of Any Multi-Drug Resistant Organisms: None Reported Additional Past Surgical History / Comment(s): DENTAL IMPLANTS Past Anesthesia/Blood Transfusion Reactions: Motion Sickness Past Psychological History: No Psychological Hx Reported Smoking Status: Never smoker Past Alcohol Use History: Abuse, Daily Past Drug Use History: None Reported - Past Family History Father Family Medical History: Cancer Additional Family Medical History / Comment(s): PROSTATE, URETER CANCER Medications and Allergies Home Medications Medication Instructions Recorded Confirmed Type No Known Home Medications 01/26/24 01/26/24 History Allergies Allergy/AdvReac Type Severity Reaction Status Date / Time No Known Allergies Allergy Verified 01/26/24 09:06 Physical Examination Positive for left periorbital ecchymosis since fall. Negative for any open fractures, significant wounds. Left shoulder is negative for any open fracture, significant erythema/ecchymosis/open wounds. Sensation is equal, symmetric, bilateral intact in the extremities. Patient does have limited active range of motion in the left upper extremity due to the weakness from the stroke over the past few days. Patient is able to passively raise the left shoulder above head without pain. 4-/5 in all major motor groups in left upper extremity. 4+/5 in all major motor groups in right upper extremity. Radial pulse intact, 2+ bilaterally. Cap refill under 3 seconds of upper extremities. Negative Homans bilaterally. Results - Labs Labs: Abnormal Lab Results - Last 24 Hours (Table) 01/26/24 01/26/24 01/26/24 Range/Units 02:58 10:59 17:30 POC Glucose (mg/dL) 296 H 301 H (70-110) mg/dL Hemoglobin A1c 13.3 H (<=6.0) % 01/27/24 Range/Units 06:15 POC Glucose (mg/dL) 284 H (70-110) mg/dL Hemoglobin A1c (<=6.0) % H & H 01/26/24 Range/Units 02:58 Hgb 16.1 (13.0-17.5) gm/dL Hct 47.5 (39.0-53.0) % Coagulation 01/26/24 Range/Units 02:58 INR 0.9 (<1.2) Result Diagrams: 01/26/24 02:58 01/26/24 02:58 - Diagnostic results Shoulder x-ray: report reviewed, image reviewed Assessment and Plan Assessment: 1. Left shoulder pain; acromioclavicular joint osteoarthritis Plan: 1. Left shoulder pain; acromioclavicular joint osteoarthritis - x-ray of the left shoulder is negative for any acute process. Negative for any dislocation/fracture. Clavicle is intact. Positive for some acromioclavicular joint osteoarthritis. I discussed the findings of the imaging and exam with my attending, Dr. Rodarte. At this time we are not recommending any emergent/urgent orthopedic surgical intervention. We are recommending conservative measures with the use of sling as needed and PT/OT. Patient is okay to perform gentle range of motion exercises of the left upper extremity. Apply ice to the shoulder as needed. Patient is stable from orthopedic standpoint for discharge from the hospital. At this time orthopedics is signing off. We will defer the rest the management to the primary medical team. Please do not hesitate to contact us for any further questions. Follow-up in the outpatient setting with Dr. Rodarte as needed. 2. Appreciate medical and neuro management 3. Pain management recommendations per primary medical team 4. DVT and GI prophylaxis recommendations per primary medical team 5. PT/OT -encourage perform gentle range of motion exercises left upper extremity while resting in bed. Apply ice to the shoulder as needed. 7. Encourage incentive spirometer use 8. Prescient consult Time with Patient: Less than 30
[2024-01-27 11:38] LABS: Glucose,Whole Blood 251 mg/dL (70-110)
[2024-01-27] MEDS: INSULN ASP PRT/INSULIN ASPART 100 UNIT/ML 10 ML VIAL SQ SCH ×2 (12:18→16:30)
[2024-01-27 12:52] LABS: Chol/HDL Ratio 3.23 Ratio; LDL Cholesterol,Calculated 86.5 mg/dL (0.0-131.0)
[2024-01-27 13:50] LABS: HCT 50.2 % (39.0-53.0); HGB 16.9 gm/dL (13.0-17.5); MCHC 33.6 g/dL (31.0-37.0); MCV 95.3 fL (80.0-100.0); Platelet Count 243 k/uL (150-450); RBC 5.27 m/uL (4.30-5.90); RDW 12.3 % (11.5-15.5); WBC 8.9 k/uL (3.8-10.6)
--- NOTE | 2024-01-27 15:25 | P.PN ---
Progress Note - Text Progress Note Date: 01/27/24 Chief Complaint: Left-sided weakness This is a 58-year-old patient follows with Dr. Ray. Has known history of diabetes hypertension hyperlipidemia and sleep apnea. Does not use CPAP. Also does not take his medications because of financial issues. Does take a reduced dose of Lantus sometimes which she takes from his mother. 2 days ago patient startedwith some numbness and weakness on the left side. It progressively got a bit worse. Affecting the left arm and left leg. Some abnormal sensation left face. No change in speech vision or any headache. Already decided to come in. Initial CT scan unremarkable January 26: Yesterday patient had taken a fall after feeling dizzy. Had a laceration of the left eyelid. CT scan of brain was unremarkable. Also had some pain in the right shoulder. X-ray negative for fracture. Seen by orthopedics not for any further intervention. Also seen by general surgery for the left eye laceration. Not further further intervention. On NovoLog 70/30. Sugars still running on the higher side. Adjust dose. Blood pressure still running on the higher side. Will add Lopressor 25 twice daily. Pending MRI brain. Increase activity as tolerated supervised. Active Medications Aspirin (Aspirin 81 Mg) 81 mg PO DAILY [facility] Last Admin: 01/27/24 08:36 Dose: 81 mg Atorvastatin Calcium (Atorvastatin 80 Mg Tab) 80 mg PO HS [facility] Last Admin: 01/26/24 20:56 Dose: 80 mg Clopidogrel Bisulfate (Clopidogrel 75 Mg Tab) 75 mg PO DAILY [facility] Last Admin: 01/27/24 08:36 Dose: 75 mg Enoxaparin Sodium (Enoxaparin 40 Mg/0.4 Ml Syringe) 40 mg SQ DAILY [facility] Last Admin: 01/27/24 08:36 Dose: 40 mg Famotidine (Famotidine 20 Mg/2 Ml Vial) 20 mg IV Q12HR [facility] Last Admin: 01/27/24 08:36 Dose: 20 mg Gabapentin (Gabapentin 300 Mg Cap) 300 mg PO TID [facility] Last Admin: 01/27/24 08:36 Dose: 300 mg Lisinopril/HCTZ (Lisinopril-Hctz 20-12.5 Mg 1 Each Tab) 1 each PO BID [facility] Last Admin: 01/27/24 08:36 Dose: 1 each Insulin Aspart (Insuln Asp Prt/Insulin Aspart 100 Unit/Ml 10 Ml Vial) 8 unit SQ AC-LUNCH ROLANDO Insulin Aspart (Insuln Asp Prt/Insulin Aspart 100 Unit/Ml 10 Ml Vial) 24 unit SQ AC-BID R[facility]O Metformin HCl (Metformin 500 Mg Tab) 1,000 mg PO BID-W/MEALS [facility]O Last Admin: 01/27/24 06:32 Dose: 1,000 mg Metoprolol Tartrate (Metoprolol Tartrate 25 Mg Tab) 25 mg PO BID [facility] Naproxen (Naproxen 250 Mg Tab) 250 mg PO TID PRN PRN Reason: Pain Last Admin: 01/27/24 05:00 Dose: 250 mg Social history: Lives alone. Does not smoke. For last 1 year close to drinking 1 pitcher of beer a day. Prior to that was drinking 2-3 beers a day. Physical examination: VITAL SIGNS: 98.6, 67, 18, 149 x 87, 96% room air GENERAL: BMI 42.1, reclining bed awake comfortable. EYES: Pupils equal. Conjunctiva maria eugenia l. Mild laceration left eye with some bruising HEENT: External appearance of nose and ears normal, oral cavity grossly normal. NECK: JVD not raised; masses not palpable. HEART: First and second heart sounds are normal; no edema. LUNGS: Respiratory rate normal; clear to auscultation. ABDOMEN: Soft, nontender, liver spleen not palpable, no masses palpable. PSYCH: Alert and oriented x3; mood and affect maria eugenia l. MUSCULOSKELETAL:No Clubbing/cyanosis;muscles-grossly intact NEUROLOGICAL: Some altered sensation on the left side of the face. Power in the left arm 4/5. Left leg 4/5.. INVESTIGATIONS, reviewed in the clinical context: January 26: White count 8.9 hemoglobin 16.9. LDL 86.5 Carotid Doppler: Unremarkable January 25: White count 8.5 hemoglobin 16.1 platelets 229 sodium 130 potassium 3.8 creatinine 0.75 blood glucose 347 Troponin I 0.012 x 3 TSH 3.0 EKG tracing personally reviewed by me-sinus rhythm. Nonspecific ST-T wave changes. Chest x-ray film personally reviewed by me-unremarkable CT brain: Unremarkable Assessment plan: -Clinically acute stroke. Initial CT scan is negative. Aspirin. Plavix Lipitor. Carotid Doppler-unremarkable Pending:. 2D echo. MR brain-pending Neurology following PT OT. -Essential hypertension, uncontrolled Lisinopril hydrochlorothiazide 20/12.5 twice daily. Lopressor 25 mg twice daily added today -Diabetes mellitus type 2, uncontrolled Patient not been taking his medications/insulin regularly. Does takes sometimes from his mother. Increase NovoLog 70/30 , 24 units with breakfast and supper and increase 8 units with lunch Glucophage -Hyperlipidemia Lipitor -Noncompliance with medication due to financial issues Consult school social worker Increased dose of naloxone to 30. Pending MRI. Increase activity supervised. Past Medical History Past Medical History: Diabetes Mellitus, Hyperlipidemia, Hypertension, Skin Disorder, Sleep Apnea/CPAP/BIPAP Additional Past Medical History / Comment(s): ECZEMA. NO TX FOR SLEEP APNEA YET. History of Any Multi-Drug Resistant Organisms: None Reported Additional Past Surgical History / Comment(s): DENTAL IMPLANTS Past Anesthesia/Blood Transfusion Reactions: Motion Sickness Past Psychological History: No Psychological Hx Reported Smoking Status: Never smoker Past Alcohol Use History: Abuse, Daily Past Drug Use History: None Reported
--- NOTE | 2024-01-27 15:50 | P.PN ---
Subjective Progress Note Date: 01/27/24 I am following-up with patient and yesterday he had numbness and felt warm over the right side of body. He had episode of fall since he stated his left leg gave out. He bruised the left eyebrow as result. Today he feels he is having weakness over the left side and numbness over the left side. Objective - Vital Signs Vital signs: Vital Signs Temp 98.6 F 01/27/24 04:00 Pulse 67 01/27/24 12:00 Resp 18 01/27/24 12:00 BP 149/87 01/27/24 12:00 Pulse Ox 96 01/27/24 12:00 FiO2 Intake & Output 01/26/24 01/27/24 01/27/24 18:59 06:59 18:59 Intake Total 650 378 Balance 650 378 Weight 95.4 kg Intake: IV 10 20 Invasive Line 1 10 20 Oral 640 358 Other: Voiding Method Toilet Urinal # Voids 1 2 # Bowel Movements 2 - Exam GENERAL: The patient is sitting in a recliner chair and is not in acute distress. NEUROLOGICAL: Higher mental function: The patient is awake, alert, oriented to self, place and time. Patient is following commands. No aphasia and no neglect. Cranial nerves: The pupils are round, equal and reactive to light and accommodation. Visual patton are full to confrontation throughout. Extraocular movement is intact no nystagmus is noted. Facial sensation is normal to touch throughout. The facial strength is normal throughout. Tongue is midline and moved [id number] without any difficulty. No dysarthria is noted. Shoulder shrug is normal bilaterally. Motor: The strength is left upper extremity is 4-4+ and left lower is 4+ to 5-. Right side is 5/5. Normal tone and bulk. Cerebellum: Has ataxia over left finger to nose. Sensation: Sensation is normal to touch throughout. Some of the workup during this hospital visit consisted of: Lipid panel: TG 137, cholestrol 165, LDL 86 and HDL 51 HbA1c: 13.3 TSH: 3.0 CT of the head is reported as no acute intracranial hemorrhage, midline shift or mass effect. I personally reviewed the CT and feel the patient has acute to subacute stroke over the right thalamus and it seems more subacute. Carotid duplex: Mild bilateral plaque in the carotid bifurcation bilaterally. No significant stenosis within the carotid bifurcation or proximal internal carotid arteries based on peak systolic velocities and ratios as well as grayscale and color imaging. Repeat CT head: No acute intracranial hemorrhage, midline shift or acute mass effect. Age-indeterminate infarct in the right thalamus. - Labs CBC & Chem 7: 01/27/24 13:19 01/26/24 02:58 Labs: Abnormal Lab Results - Last 24 Hours (Table) 01/26/24 01/26/24 01/27/24 Range/Units 02:58 17:30 06:15 POC Glucose (mg/dL) 301 H 284 H (70-110) mg/dL Hemoglobin A1c 13.3 H (<=6.0) % 01/27/24 Range/Units 11:37 POC Glucose (mg/dL) 251 H (70-110) mg/dL Hemoglobin A1c (<=6.0) % Assessment and Plan Assessment: This is a 58-year-old gentleman who present emergency department because of progressive numbness over the left side including the face left upper and lower extremity and he noticed that he is having weakness on the left side. He states he has underlying history of diabetes type 2 as well as hypertension and he is not taking medication on a regular basis since he is having financial issues and has not seen primary care physician in 3 years since he does not have health insurance. Acute to subacute stroke and likely right thalamus. Has numbness over the left side as well as weakness. No thrombolytics since he is outside the window and the risk outweigh the benefit. Etiology of stroke is his risk factors (HTN, DM, obesity) Hypertension urgent Uncontrolled Diabetes type 2 (HbA1c 13.3) Hypertension Medication noncompliance because of financial issues Morbid obesity Plan: Continue aspirin to 81 mg daily and Plavix 75 mg daily. Prior to this the patient was not on any antiplatelet. Patient started on Lipitor 80 mg nightly Pending 2D echo, MRI Brain. Continue neurochecks Cardiac monitoring Will continue to fall. PT OT and BUSINESS PROJECT ANALYST are consulted Fall precaution. Will defer the rest of the medical management to primary and other specialist Recommend supervisor case loading to be consulted to address to help out patient obtain health insurance. Or provide him with the resources so he can obtain his medication. Next DVT prophylaxis On Lovenox. Time with Patient: Less than 30
[2024-01-27] MEDS: METOPROLOL TARTRATE 25 MG TAB PO SCH (16:30)
[2024-01-27 16:53] LABS: Glucose,Whole Blood 205 mg/dL (70-110)
[2024-01-27 20:39] LABS: Glucose,Whole Blood 220 mg/dL (70-110)
[2024-01-28 06:30] LABS: Glucose,Whole Blood 409 mg/dL (70-110)
--- NOTE | 2024-01-28 11:07 | P.PN ---
Subjective Progress Note Date: 01/28/24 SURGICAL PROGRESS NOTE CHIEF COMPLAINT: CVA HISTORY OF PRESENT ILLNESS: Surgical service following regards to patient's eyelid laceration after fall. Patient currently sitting at bedside chair. He reports decreased swelling in the periorbital area of the left eye. He denies any vision changes. Afebrile. Vital stable. PHYSICAL EXAM: VITAL SIGNS: Reviewed. GENERAL: Well-developed in no acute distress. HEENT: Small laceration to the left upper eyelid with periorbital edema and ecchymosis. Patient is able to open his eye. ABDOMEN: Soft. Nondistended. Nontender. NEUROLOGIC: Alert and oriented. Cranial nerves II through XII grossly intact. ASSESSMENT: 1. Small left upper eyelid laceration after fall 2. Possible CVA PLAN: -No surgical intervention planned -If patient has any vision issues recommend ophthalmology consult -Continue ice packs as needed to the eye for swelling Physician Fisheries Officer note has been reviewed by physician. Signing provider agrees with the documented findings, assessment, and plan of care. Objective - Vital Signs Vital signs: Vital Signs Temp 98.1 F 01/28/24 08:00 Pulse 76 01/28/24 08:00 Resp 18 01/28/24 08:00 BP 160/76 01/28/24 08:00 Pulse Ox 96 01/28/24 08:00 FiO2 Intake & Output 01/27/24 01/28/24 01/28/24 18:59 06:59 18:59 Intake Total 496 20 140 Output Total 500 Balance 496 -480 140 Weight 94.5 kg Intake: IV 20 20 20 Invasive Line 1 20 20 20 Oral 476 120 Output: Urine 500 Other: Voiding Method Toilet # Voids 2 # Bowel Movements 2 - Labs CBC & Chem 7: 01/27/24 13:19 01/26/24 02:58 Labs: Abnormal Lab Results - Last 24 Hours (Table) 01/27/24 01/27/24 01/27/24 Range/Units 11:37 16:51 20:37 POC Glucose (mg/dL) 251 H 205 H 220 H (70-110) mg/dL 01/28/24 Range/Units 06:29 POC Glucose (mg/dL) 409 H (70-110) mg/dL
[2024-01-28 11:16] VITALS: BMI 38.0
[2024-01-28 11:22] LABS: Glucose,Whole Blood 261 mg/dL (70-110)
[2024-01-28] MEDS: INSULN ASP PRT/INSULIN ASPART 100 UNIT/ML 10 ML VIAL SQ SCH ×2 (11:54→15:40)
--- NOTE | 2024-01-28 11:56 | CA ---
Transthoracic Echo Report Name: Johann Guevara Age: 58 Gender: M : 1965 Exam Date: 01/28/2024 10:19 Exam Location: [place] [facility] Ht (in): 62 Wt (lb): 230 Ordering Physician: Nishant Albert MD Attending/Referring Phys: Net Application Support Specialist Lauren Quiroz RDCS Procedure CPT: Indications: poss cva Cardiac Hx: Technical Quality: Fair Contrast 1: Agitated Saline Total Dose (mL): Contrast 2: Total Dose (mL): MEASUREMENTS (Male / Female) Normal Values 2D ECHO LV Diastolic Diameter PLAX 3.7 cm 4.2 - 5.9 / 3.9 - 5.3 cm LV Systolic Diameter PLAX 1.7 cm IVS Diastolic Thickness 1.6 cm 0.6 - 1.0 / 0.6 - 0.9 cm LVPW Diastolic Thickness 1.5 cm 0.6 - 1.0 / 0.6 - 0.9 cm LV Relative Wall Thickness 0.8 RV Internal Dim ED PLAX 1.4 cm LA Systolic Diameter LX 3.9 cm 3.0 - 4.0 / 2.7 - 3.8 cm LV Diastolic Volume MOD BP 50.5 cm??? 67 - 155 / 56 - 104 cm??? LV Systolic Volume MOD BP 25.4 cm??? 22 - 58 / 19 - 49 cm??? LV Ejection Fraction MOD BP 49.7 % >= 55 % LV Cardiac Index MOD BP 927.4 cm???/min???m??? LV Diastolic Volume MOD 4C 71.7 cm??? LV Systolic Volume MOD 4C 27.0 cm??? LV Ejection Fraction MOD 4C 62.4 % LV Cardiac Index MOD 4C 1649.8 cm???/min???m??? LV Diastolic Length 4C 7.5 cm LV Systolic Length 4C 6.0 cm LV Diastolic Volume MOD 2C 31.0 cm??? LV Systolic Volume MOD 2C 18.6 cm??? LV Ejection Fraction MOD 2C 40.0 % LV Cardiac Index MOD 2C 458.0 cm???/min???m??? LV Diastolic Length 2C 6.5 cm LV Systolic Length 2C 5.2 cm LA Volume 39.6 cm??? 18 - 58 / 22 - 52 cm??? LA Volume Index 18.0 cm???/m??? 16 - 28 cm???/m??? M-MODE Aortic Root Diameter MM 3.1 cm LA Systolic Diameter MM 4.1 cm LA Ao Ratio MM 1.3 AV Cusp Separation MM 1.8 cm DOPPLER MV Area PHT 2.5 cm??? Mitral E Point Velocity 80.5 cm/s Mitral A Point Velocity 115.9 cm/s Mitral E to A Ratio 0.7 MV Deceleration Time 301.9 ms FINDINGS Left Ventricle Left ventricular ejection fraction is estimated at 55-60 %. Moderately increased septal wall thickness. No obvious regional wall motion abnormalities. Left ventricular cavity size at the upper limits of normal. Right Ventricle Normal right ventricular size and function. Unable to estimate the right ventricular systolic pressure. Right Atrium Normal right atrial size. Negative agitated saline bubble study for right to left shunt. Left Atrium Normal left atrial size. Mitral Valve Structurally normal mitral valve. Trace mitral regurgitation. No mitral stenosis. Aortic Valve Trileaflet aortic valve. No aortic valve stenosis or regurgitation. Tricuspid Valve Structurally normal tricuspid valve. Trace tricuspid regurgitation. No tricuspid stenosis. Pulmonic Valve Structurally normal pulmonic valve. Trace pulmonic regurgitation. No pulmonic stenosis. Pericardium No pericardial or pleural effusion. Aorta Normal size aortic root and proximal ascending aorta. CONCLUSIONS Grossly normal LV size and systolic function. Mild mitral and tricuspid regurgitation. Bubble study revealed no evidence of shunt. No pericardial effusion Previewed by: Dr. Katerina Shrestha MD (Electronically Signed) Final Date: 28 January 2024 11:55
[2024-01-28] MEDS ORDERED: INSULN ASP PRT/INSULIN ASPART 100 UNIT/ML 10 ML VIAL SQ SCH (12:30)
[2024-01-28 16:10] LABS: Glucose,Whole Blood 300 mg/dL (70-110)
--- NOTE | 2024-01-28 16:52 | P.PN ---
Subjective Progress Note Date: 01/28/24 I am following-up with patient and he states he continues to have numbness over the left side with weakness. Denies any worsening of his condition. He does not feel Gabapentin is helpging and denies any pain on left side and only has numbness. Objective - Vital Signs Vital signs: Vital Signs Temp 98.1 F 01/28/24 11:59 Pulse 77 01/28/24 15:45 Resp 18 01/28/24 15:45 BP 156/72 01/28/24 15:45 Pulse Ox 95 01/28/24 15:45 FiO2 Intake & Output 01/27/24 01/28/24 01/28/24 18:59 06:59 18:59 Intake Total 496 20 260 Output Total 500 400 Balance 496 -480 -140 Weight 94.5 kg 94.5 kg Intake: IV 20 20 20 Invasive Line 1 20 20 20 Oral 476 240 Output: Urine 500 400 Other: Voiding Method Toilet # Voids 2 # Bowel Movements 2 - Exam GENERAL: The patient is sitting in a recliner chair and is not in acute distress . NEUROLOGICAL: Higher mental function: The patient is awake, alert, oriented to self, place and time. Patient is following commands. No aphasia and no neglect. Cranial nerves: The pupils are round, equal and reactive to light and accommodation. Visual patton are full to confrontation throughout. Extraocular movement is intact no nystagmus is noted. Facial sensation is normal to touch throughout. The facial strength is normal throughout. Tongue is midline and moved [id number] without any difficulty. No dysarthria is noted. Shoulder shrug is normal bilaterally. Motor: The strength is left upper extremity is 4-4+ and left lower is 4+ to 5-. Right side is 5/5. Normal tone and bulk. Cerebellum: Has ataxia over left finger to nose. Sensation: Sensation is normal to touch throughout. Some of the workup during this hospital visit consisted of: Lipid panel: TG 137, cholestrol 165, LDL 86 and HDL 51 HbA1c: 13.3 TSH: 3.0 CT of the head is reported as no acute intracranial hemorrhage, midline shift or mass effect. I personally reviewed the CT and feel the patient has acute to subacute stroke over the right thalamus and it seems more subacute. Carotid duplex: Mild bilateral plaque in the carotid bifurcation bilaterally. No significant stenosis within the carotid bifurcation or proximal internal carotid arteries based on peak systolic velocities and ratios as well as g rayscale and color imaging. Repeat CT head: No acute intracranial hemorrhage, midline shift or acute mass effect. Age-indeterminate infarct in the right thalamus. 2D echo: Grossly normal left ventricular size systolic function. Mild mitral and tricuspid regurgitation. Bubble study revealed no evidence of shunt. No pericardial effusion. - Labs CBC & Chem 7: 01/27/24 13:19 01/26/24 02:58 Labs: Abnormal Lab Results - Last 24 Hours (Table) 01/27/24 01/27/24 01/28/24 Range/Units 16:51 20:37 06:29 POC Glucose (mg/dL) 205 H 220 H 409 H (70-110) mg/dL 01/28/24 01/28/24 Range/Units 11:20 16:09 POC Glucose (mg/dL) 261 H 300 H (70-110) mg/dL Assessment and Plan Assessment: This is a 58-year-old gentleman who present emergency department because of pr ogressive numbness over the left side including the face left upper and lower extremity and he noticed that he is having weakness on the left side. He states he has underlying history of diabetes type 2 as well as hypertension and he is not taking medication on a regular basis since he is having financial issues and has not seen primary care physician in 3 years since he does not have health insurance. Acute to subacute stroke and likely right thalamus. Has numbness over the left side as well as weakness. No thrombolytics since he is outside the window and the risk outweigh the benefit. Etiology of stroke is his risk factors (HTN, DM, obesity) Hypertension urgent Uncontrolled Diabetes type 2 (HbA1c 13.3) Hypertension Medication noncompliance because of financial issues Morbid obesity Plan: Continue aspirin to 81 mg daily and Plavix 75 mg daily. Prior to this the patient was not on any antiplatelet. Went down on Lipitor from 80 mg to 40mg nightly. LDL goal <70. Pending MRI Brain. I stopped Gabapentin since no pain on the left side. Continue neurochecks Cardiac monitoring Will continue to fall. PT OT and UTILIZATION MANAGEMENT MANAGER are consulted Fall precaution. Will defer the rest of the medical management to primary and other specialist Recommend rn case mgr to be consulted to address to help out patient obtain health insurance. Or provide him with the resources so he can obtain his medication. Next DVT prophylaxis On Lovenox. Time with Patient: Less than 30
--- NOTE | 2024-01-28 19:47 | P.PN ---
Progress Note - Text Progress Note Date: 01/28/24 Chief Complaint: Left-sided weakness This is a 58-year-old patient follows with Dr. Ray. Has known history of diabetes hypertension hyperlipidemia and sleep apnea. Does not use CPAP. Also does not take his medications because of financial issues. Does take a reduced dose of Lantus sometimes which she takes from his mother. 2 days ago patient startedwith some numbness and weakness on the left side. It progressively got a bit worse. Affecting the left arm and left leg. Some abnormal sensation left face. No change in speech vision or any headache. Already decided to come in. Initial CT scan unremarkable January 26: Yesterday patient had taken a fall after feeling dizzy. Had a laceration of the left eyelid. CT scan of brain was unremarkable. Also had some pain in the right shoulder. X-ray negative for fracture. Seen by orthopedics not for any further intervention. Also seen by general surgery for the left eye laceration. Not further further intervention. On NovoLog 70/30. Sugars still running on the higher side. Adjust dose. Blood pressure still running on the higher side. Will add Lopressor 25 twice daily. Pending MRI brain. Increase activity as tolerated supervised. January 27: Saw the patient this morning. Accu-Cheks images are running high. Further adjustment of NovoLog 70/30 was done. MRI still pending. 2D echo did not show any thrombus. Bubble study was negative. Left-sided weakness remains. PT OT is recommending rehab. Increase Lopressor to 50 mg twice daily for blood pressure. Consult dietitian Active Medications Aspirin (Aspirin 81 Mg) 81 mg PO DAILY [facility] Last Admin: 01/28/24 08:17 Dose: 81 mg Atorvastatin Calcium (Atorvastatin 80 Mg Tab) 80 mg PO HS [facility] Last Admin: 01/27/24 21:23 Dose: 80 mg Clopidogrel Bisulfate (Clopidogrel 75 Mg Tab) 75 mg PO DAILY [facility] Last Admin: 01/28/24 08:17 Dose: 75 mg Enoxaparin Sodium (Enoxaparin 40 Mg/0.4 Ml Syringe) 40 mg SQ DAILY [facility] Last Admin: 01/28/24 08:17 Dose: 40 mg Lisinopril/HCTZ (Lisinopril-Hctz 20-12.5 Mg 1 Each Tab) 1 each PO BID [facility] Last Admin: 01/28/24 08:17 Dose: 1 each Insulin Aspart (Insuln Asp Prt/Insulin Aspart 100 Unit/Ml 10 Ml Vial) 12 unit SQ AC-LUNCH [facility] Last Admin: 01/28/24 11:54 Dose: 12 unit Insulin Aspart (Insuln Asp Prt/Insulin Aspart 100 Unit/Ml 10 Ml Vial) 30 unit SQ AC-BID [facility] Last Admin: 01/28/24 15:40 Dose: 30 unit Metformin HCl (Metformin 500 Mg Tab) 1,000 mg PO BID-W/MEALS [facility] Last Admin: 01/28/24 15:39 Dose: 1,000 mg Metoprolol Tartrate (Metoprolol Tartrate 25 Mg Tab) 25 mg PO BID [facility] Last Admin: 01/28/24 08:17 Dose: 25 mg Naproxen (Naproxen 250 Mg Tab) 250 mg PO TID PRN PRN Reason: Pain Last Admin: 01/28/24 03:16 Dose: 250 mg Social history: Lives alone. Does not smoke. For last 1 year close to drinking 1 pitcher of beer a day. Prior to that was drinking 2-3 beers a day. Physical examination: VITAL SIGNS: 98.1, 77, 18, 156 x 72, 95% room air GENERAL: BMI 42.1, reclining bed awake comfortable. EYES: Pupils equal. Conjunctiva maria eugenia l. Mild laceration left eye with some bruising HEENT: External appearance of nose and ears normal, oral cavity grossly normal. NECK: JVD not raised; masses not palpable. HEART: First and second heart sounds are normal; no edema. LUNGS: Respiratory rate normal; clear to auscultation. ABDOMEN: Soft, nontender, liver spleen not palpable, no masses palpable. PSYCH: Alert and oriented x3; mood and affect maria eugenia l. MUSCULOSKELETAL:No Clubbing/cyanosis;muscles-grossly intact NEUROLOGICAL: Some altered sensation on the left side of the face. Power in the left arm 4/5. Left leg 4/5.. INVESTIGATIONS, reviewed in the clinical context: 2D echocardiogram: EF 55 to 60%. No wall motion abnormality. Negative for thrombus. Negative bubble study January 26: White count 8.9 hemoglobin 16.9. LDL 86.5 Carotid Doppler: Unremarkable January 25: White count 8.5 hemoglobin 16.1 platelets 229 sodium 130 potassium 3.8 creatinine 0.75 blood glucose 347 Troponin I 0.012 x 3 TSH 3.0 EKG tracing personally reviewed by me-sinus rhythm. Nonspecific ST-T wave changes. Chest x-ray film personally reviewed by me-unremarkable CT brain: Unremarkable Assessment plan: -Clinically acute stroke. Initial CT scan is negative. Aspirin. Plavix Lipitor. Carotid Doppler-unremarkable MRI pending. 2D echo.-Negative for thrombus and negative bubble study Neurology following PT OT. -Essential hypertension, uncontrolled Lisinopril hydrochlorothiazide 20/12.5 twice daily. Lopressor 25 mg twice daily added today -Diabetes mellitus type 2, uncontrolled Patient not been taking his medications/insulin regularly. Does takes sometimes from his mother. Increase NovoLog 70/30 , 24 units with breakfast and supper and increase 8 units with lunch Glucophage Consult dietitian -Acute gait dysfunction from stroke PT OT recommending rehab -Hyperlipidemia Lipitor -Obesity BMI 38.1 Consult dietitian -Noncompliance with medication due to financial issues Consult social welfare clerk Further increase dose of NovoLog. Discussed with patient. Pending MRI. Past Medical History Past Medical History: Diabetes Mellitus, Hyperlipidemia, Hypertension, Skin Disorder, Sleep Apnea/CPAP/BIPAP Additional Past Medical History / Comment(s): ECZEMA. NO TX FOR SLEEP APNEA YET. History of Any Multi-Drug Resistant Organisms: None Reported Additional Past Surgical History / Comment(s): DENTAL IMPLANTS Past Anesthesia/Blood Transfusion Reactions: Motion Sickness Past Psychological History: No Psychological Hx Reported Smoking Status: Never smoker Past Alcohol Use History: Abuse, Daily Past Drug Use History: None Reported
[2024-01-28 20:40] LABS: Glucose,Whole Blood 228 mg/dL (70-110)
[2024-01-28] MEDS: METOPROLOL TARTRATE 50 MG TAB PO SCH (20:49)
[2024-01-29] MEDS: ACETAMINOPHEN TAB 500 MG TAB PO PRN (05:24)
[2024-01-29 05:50] LABS: Glucose,Whole Blood 248 mg/dL (70-110)
[2024-01-29 11:17] LABS: Glucose,Whole Blood 201 mg/dL (70-110)
[2024-01-29] MEDS: INSULN ASP PRT/INSULIN ASPART 100 UNIT/ML 10 ML VIAL SQ SCH ×2 (12:01→16:48)
[2024-01-29] MEDS ORDERED: INSULN ASP PRT/INSULIN ASPART 100 UNIT/ML 10 ML VIAL SQ SCH (12:30)
--- NOTE | 2024-01-29 14:16 | P.PN ---
Subjective Progress Note Date: 01/29/24 SURGICAL PROGRESS NOTE CHIEF COMPLAINT: CVA HISTORY OF PRESENT ILLNESS: Surgical service following regards to patient's eyelid laceration after fall. Patient denies any vision changes. The periorbital swelling is decreasing around that left eye. Vital stable PHYSICAL EXAM: VITAL SIGNS: Reviewed. GENERAL: Well-developed in no acute distress. HEENT: Small laceration to the left upper eyelid with periorbital edema and ecchymosis. Patient is able to open his eye. Swelling is decreasing ABDOMEN: Soft. Nondistended. Nontender. NEUROLOGIC: Alert and oriented. Cranial nerves II through XII grossly intact. ASSESSMENT: 1. Small left upper eyelid laceration after fall 2. Possible CVA PLAN: -No surgical intervention planned -If patient has any vision issues recommend ophthalmology consult Physician Director Communications note has been reviewed by physician. Signing provider agrees with the documented findings, assessment, and plan of care. Objective - Vital Signs Vital signs: Vital Signs Temp 98.5 F 01/29/24 11:04 Pulse 68 01/29/24 13:16 Resp 16 01/29/24 11:04 BP 126/78 01/29/24 11:04 Pulse Ox 97 01/29/24 11:04 FiO2 Intake & Output 01/28/24 01/29/24 01/29/24 18:59 06:59 18:59 Intake Total 370 140 220 Output Total 400 Balance -30 140 220 Weight 94.5 kg 94.4 kg Intake: IV 20 20 Invasive Line 1 20 20 Oral 350 120 220 Output: Urine 400 Other: Voiding Method Toilet Toilet # Voids 1 2 - Labs CBC & Chem 7: 01/27/24 13:19 01/26/24 02:58 Labs: Abnormal Lab Results - Last 24 Hours (Table) 01/28/24 01/28/24 01/29/24 Range/Units 16:09 20:37 05:48 POC Glucose (mg/dL) 300 H 228 H 248 H (70-110) mg/dL 01/29/24 Range/Units 11:16 POC Glucose (mg/dL) 201 H (70-110) mg/dL
--- NOTE | 2024-01-29 15:45 | MR ---
EXAMINATION TYPE: MR brain wo con DATE OF EXAM: 01/29/2024 3:38 PM COMPARISON: 01/26/2024. CLINICAL INDICATION: Male, 58 years old with history of stroke. left sided numbness; PHH, Stroke, Le ft sided numbness TECHNIQUE: Multi planar, multi sequence imaging was performed through the brain including: T1, T2, In version recovery, Diffusion weighted imaging, and gradient echo imaging. No gadolinium was given. FINDINGS: Restricted diffusion within the right thalamus as well as the right medial temporal lobe. The palomares-white junctions, ventricular system, basal cisterns appear unremarkable. Scattered foci of high T2 signal intensity are seen within the periventricular white matter. Midline structures show n o abnormality. Diffusion-weighted imaging shows no evidence of restricted diffusion. The susceptibili ty weighted images do not reveal any evidence for micro-hemorrhage. The bone marrow signal is within normal limits. Paranasal sinuses and mastoid air cells: No significant paranasal sinus disease. Visualized orbits: Orbital contents are intact. IMPRESSION: 1. Acute/subacute CVA involving the right thalamus and right medial temporal lobe. 2. Nonspecific white matter changes, likely secondary to small vessel ischemic disease. [facility], Workstation: [email or web address], 01/29/2024 3:43 PM
[2024-01-29 16:14] LABS: Glucose,Whole Blood 228 mg/dL (70-110)
--- NOTE | 2024-01-29 16:44 | P.PN ---
Progress Note - Text Progress Note Date: 01/29/24 Chief Complaint: Left-sided weakness This is a 58-year-old patient follows with Dr. Ray. Has known history of diabetes hypertension hyperlipidemia and sleep apnea. Does not use CPAP. Also does not take his medications because of financial issues. Does take a reduced dose of Lantus sometimes which she takes from his mother. 2 days ago patient startedwith some numbness and weakness on the left side. It progressively got a bit worse. Affecting the left arm and left leg. Some abnormal sensation left face. No change in speech vision or any headache. Already decided to come in. Initial CT scan unremarkable January 26: Yesterday patient had taken a fall after feeling dizzy. Had a laceration of the left eyelid. CT scan of brain was unremarkable. Also had some pain in the right shoulder. X-ray negative for fracture. Seen by orthopedics not for any further intervention. Also seen by general surgery for the left eye laceration. Not further further intervention. On NovoLog 70/30. Sugars still running on the higher side. Adjust dose. Blood pressure still running on the higher side. Will add Lopressor 25 twice daily. Pending MRI brain. Increase activity as tolerated supervised. January 27: Saw the patient this morning. Accu-Cheks images are running high. Further adjustment of NovoLog 70/30 was done. MRI still pending. 2D echo did not show any thrombus. Bubble study was negative. Left-sided weakness remains. PT OT is recommending rehab. Increase Lopressor to 50 mg twice daily for blood pressure. Consult dietitian January 28: Saw the patient this afternoon. Patient's brother is visiting. Insulin dose was further adjusted. Spoke clearly to case management social worker Charles. Patient has no insurance. Hence patient will want to go to his sister's place. Patient required a walker. Patient wishes to get discharge tomorrow. MRI brain confirms stroke involving the right thalamus and the right medial temporal lobe. Active Medications Acetaminophen (Acetaminophen Tab 500 Mg Tab) 500 mg PO Q6HR PRN PRN Reason: Fever Last Admin: 01/29/24 05:24 Dose: 500 mg Aspirin (Aspirin 81 Mg) 81 mg PO DAILY [facility] Last Admin: 01/29/24 09:04 Dose: 81 mg Atorvastatin Calcium (Atorvastatin 80 Mg Tab) 80 mg PO HS [facility] Last Admin: 01/28/24 20:49 Dose: 80 mg Clopidogrel Bisulfate (Clopidogrel 75 Mg Tab) 75 mg PO DAILY [facility] Last Admin: 01/29/24 09:04 Dose: 75 mg Enoxaparin Sodium (Enoxaparin 40 Mg/0.4 Ml Syringe) 40 mg SQ DAILY [facility] Last Admin: 01/29/24 09:04 Dose: 40 mg Lisinopril/HCTZ (Lisinopril-Hctz 20-12.5 Mg 1 Each Tab) 1 each PO BID [facility] Last Admin: 01/29/24 09:04 Dose: 1 each Insulin Aspart (Insuln Asp Prt/Insulin Aspart 100 Unit/Ml 10 Ml Vial) 20 unit SQ AC-LUNCH [facility] Last Admin: 01/29/24 12:01 Dose: 20 unit Insulin Aspart (Insuln Asp Prt/Insulin Aspart 100 Unit/Ml 10 Ml Vial) 36 unit SQ AC-BID [facility] Metformin HCl (Metformin 500 Mg Tab) 1,000 mg PO BID-W/MEALS [facility] Last Admin: 01/29/24 06:30 Dose: 1,000 mg Metoprolol Tartrate (Metoprolol Tartrate 50 Mg Tab) 50 mg PO BID [facility] Last Admin: 01/29/24 09:04 Dose: 50 mg Naproxen (Naproxen 250 Mg Tab) 250 mg PO TID PRN PRN Reason: Pain Last Admin: 01/28/24 03:16 Dose: 250 mg Social history: Lives alone. Does not smoke. For last 1 year close to drinking 1 pitcher of beer a day. Prior to that was drinking 2-3 beers a day. Physical examination: VITAL SIGNS: 98.5, 68, 16, 126% 8, 97% room air GENERAL: BMI 42.1, up in a chair, comfortable EYES: Pupils equal. Conjunctiva maria eugenia l. Mild laceration left eye with some bruising HEENT: External appearance of nose and ears normal, oral cavity grossly normal. NECK: JVD not raised; masses not palpable. HEART: First and second heart sounds are normal; no edema. LUNGS: Respiratory rate normal; clear to auscultation. ABDOMEN: Soft, nontender, liver spleen not palpable, no masses palpable. PSYCH: Alert and oriented x3; mood and affect maria eugenia l. MUSCULOSKELETAL:No Clubbing/cyanosis;muscles-grossly intact NEUROLOGICAL: Some altered sensation on the left side of the face. Power in the left arm 4/5. Left leg 4/5.. INVESTIGATIONS, reviewed in the clinical context: MRI brain without contrast [January 30]: Acute severe involving the right thalamus and the right medial temporal lobe 2D echocardiogram: EF 55 to 60%. No wall motion abnormality. Negative for thrombus. Negative bubble study January 26: White count 8.9 hemoglobin 16.9. LDL 86.5 Carotid Doppler: Unremarkable January 25: White count 8.5 hemoglobin 16.1 platelets 229 sodium 130 potassium 3.8 creatinine 0.75 blood glucose 347 Troponin I 0.012 x 3 TSH 3.0 EKG tracing personally reviewed by me-sinus rhythm. Nonspecific ST-T wave changes. Chest x-ray film personally reviewed by me-unremarkable CT brain: Unremarkable Assessment plan: -Acute stroke involving the right thalamus and the right medial temporal lobe. Likely ischemic Aspirin. Plavix Lipitor. Carotid Doppler-unremarkable MRI as above 2D echo.-Negative for thrombus and negative bubble study Neurology following PT OT. -Essential hypertension, better Lisinopril hydrochlorothiazide 20/12.5 twice daily. Lopressor increased to 50 mg twice daily -Diabetes mellitus type 2, uncontrolled Patient not been taking his medications/insulin regularly. Does takes sometimes from his mother. Increase NovoLog 70/30 , 24 units with breakfast and supper and increase 8 units with lunch Glucophage Consult dietitian -Acute gait dysfunction from stroke PT OT recommending rehab Because of financial issues no insurance patient is decided to go home. After discussing with the case management social worker. -Hyperlipidemia Lipitor -Obesity BMI 38.1 Consult dietitian -Noncompliance with medication due to financial issues Consult case management social worker Plan for patient to be discharged tomorrow. Discussed with patient and the case management social worker Past Medical History Past Medical History: Diabetes Mellitus, Hyperlipidemia, Hypertension, Skin Disorder, Sleep Apnea/CPAP/BIPAP Additional Past Medical History / Comment(s): ECZEMA. NO TX FOR SLEEP APNEA YET. History of Any Multi-Drug Resistant Organisms: None Reported Additional Past Surgical History / Comment(s): DENTAL IMPLANTS Past Anesthesia/Blood Transfusion Reactions: Motion Sickness Past Psychological History: No Psychological Hx Reported Smoking Status: Never smoker Past Alcohol Use History: Abuse, Daily Past Drug Use History: None Reported
--- NOTE | 2024-01-29 19:24 | P.PN ---
Progress Note - Text Progress Note Date: 01/29/24 I went to evaluate the patient but he was not in his room and he was likely in MRI. It seems my MRI order (which was placed on 01/26/2024) was initially canceled and I personally did not cancelled and I was not updated that it was cancelled. A new MRI order was placed.
[2024-01-29 20:05] LABS: Glucose,Whole Blood 119 mg/dL (70-110)
[2024-01-30 05:58] LABS: Glucose,Whole Blood 171 mg/dL (70-110)
--- NOTE | 2024-01-30 08:14 | CDI ---
Documentation Clarification Form Date: 01/30/2024 07:38:53 AM From: Lina Sepulveda RN CCDS Phone: [phone] Admit Date: 01/26/2024 06:42:00 AM Patient Name: Johann Guevara Visit Number: [id number] Discharge Date: ATTENTION: The Clinical Documentation Specialists (CDI) and [facility] Coding Staff appreciate your assistance in clarifying documentation. Please respond to the clarification below the line at the bottom and electronically sign. The CDI & [facility] Coding staff will review the response and follow-up if needed. Please note: Queries are made part of the Legal Health Record. If you have any questions, please contact the author of this message via ITS. Doctor Nishant Albert There is documentation of Diabetes mellitus type 2, uncontrolled documented 01/28, Medicine note. Additional clarification is requested. History/Risk Factors: 58 year old male presents to the ED with numbness and weakness on his left side it progressively got worse, affecting the left arm and leg. Medical History: DM2, Essential HTN, HLD and Obesity. Medicine note 01/28 Clinical Indicators: POC Glucose 01/25: 338; 294; 296; 301; 01/26: 284; 251; 205; 220; 01/27: 400 Hgb A1C 01/25: 13.3 Treatment: Glucophage 1,000mg PO BID W/ meals [facility], 01/25 01/26 Novolog Mix 70/30 18unit SQ AC BID [facility]; 01/26 Novolog Mix 70/30 6 units sq AC Lunch [facility] x 1; 01/26 01/27 Novolog Mix 70/30 24 unit sq AC BID; Novolog Mix 70/30 12 unit AC Lunch SQ x1; 01/27 01/28 Nvolog Mix 70/30 30 unit sq AC BID; 01/28 Novolog Mix 70/30 20 unit sq AC lunch [facility] X1; 01/28 Nvolog Mix 70/30 36units SQ Ac BID. Can you please clarify DM2 uncontrolled? [ + ] Type 2 DM uncontrolled with hyperglycemia [ ] Other, please specify [ ] Unable to determine (Template Last Revised: April 2020) MTDD
[2024-01-30 09:36] VITALS: RESP 18; TEMP 98.1
--- NOTE | 2024-01-30 11:29 | P.PN ---
Subjective Progress Note Date: 01/30/24 SURGICAL PROGRESS NOTE CHIEF COMPLAINT: CVA HISTORY OF PRESENT ILLNESS: Surgical service following regards to patient's eyelid laceration after fall. Patient denies any vision changes. The periorbital swelling is decreasing around that left eye. Vitals stable. Patient had MRI of the brain yesterday is followed by neurology. PHYSICAL EXAM: VITAL SIGNS: Reviewed. GENERAL: Well-developed in no acute distress. HEENT: Small laceration to the left upper eyelid with periorbital edema and ecchymosis. Patient is able to open his eye. Swelling is decreasing ABDOMEN: Soft. Nondistended. Nontender. NEUROLOGIC: Alert and oriented. Cranial nerves II through XII grossly intact. ASSESSMENT: 1. Small left upper eyelid laceration after fall 2. Possible CVA PLAN: -No surgical intervention planned -If patient has any vision issues recommend ophthalmology consult Physician Auto Vinyl Top Installer note has been reviewed by physician. Signing provider agrees with the documented findings, assessment, and plan of care. Objective - Vital Signs Vital signs: Vital Signs Temp 98.1 F 01/30/24 08:00 Pulse 83 01/30/24 08:00 Resp 18 01/30/24 08:00 BP 125/68 01/30/24 08:00 Pulse Ox 99 01/30/24 08:00 FiO2 Intake & Output 01/29/24 01/30/24 01/30/24 18:59 06:59 18:59 Intake Total 340 0 Output Total 500 Balance 340 -500 0 Weight 94.6 kg Intake: Oral 340 0 Output: Urine 500 Other: Voiding Method Toilet Toilet # Voids 2 - Labs CBC & Chem 7: 01/27/24 13:19 01/26/24 02:58 Labs: Abnormal Lab Results - Last 24 Hours (Table) 01/29/24 01/29/24 01/30/24 Range/Units 16:09 20:04 05:57 POC Glucose (mg/dL) 228 H 119 H 171 H (70-110) mg/dL
[2024-01-30 11:31] LABS: Glucose,Whole Blood 159 mg/dL (70-110)
[2024-01-30] MEDS: INSULN ASP PRT/INSULIN ASPART 100 UNIT/ML 10 ML VIAL SQ SCH (12:08)
[2024-01-30 12:47] VITALS: BP 125/71; PULSE 64
[2024-01-30] MEDS ORDERED: INSULN ASP PRT/INSULIN ASPART 100 UNIT/ML 10 ML VIAL SQ SCH (17:30)
--- NOTE | 2024-01-30 17:50 | P.DS ---
Providers Date of admission: 01/26/24 06:42 Expected date of discharge: 01/30/24 Attending physician: Nishant Albert Consults: 01/26/24 06:34 Consult Physician Routine Consulting Provider: Alvaro Becerra Consult Reason/Comments: L sided deficit, suspected ischemic stroke Do you want consulting provider notified?: Yes 01/26/24 17:21 Consult Physician Stat Consulting Provider: Awais Rodarte Consult Reason/Comments: fall in department, L shoulder pain Do you want consulting provider notified?: Yes 01/26/24 19:06 Consult Physician Stat Consulting Provider: Remy Bhatia Consult Reason/Comments: Laceration to left eye Do you want consulting provider notified?: Yes 01/28/24 07:50 Consult Physician Routine Consulting Provider: Jeremiah Anglin Consult Reason/Comments: laceration to left eye Do you want consulting provider notified?: Already Contacted Primary care physician: [facility] Course: Chief Complaint: Left-sided weakness This is a 58-year-old patient follows with Dr. Ray. Has known history of diabetes hypertension hyperlipidemia and sleep apnea. Does not use CPAP. Also does not take his medications because of financial issues. Does take a reduced dose of Lantus sometimes which she takes from his mother. 2 days ago patient startedwith some numbness and weakness on the left side. It progressively got a bit worse. Affecting the left arm and left leg. Some abnormal sensation left face. No change in speech vision or any headache. Already decided to come in. Initial CT scan unremarkable January 26: Yesterday patient had taken a fall after feeling dizzy. Had a laceration of the left eyelid. CT scan of brain was unremarkable. Also had some pain in the right shoulder. X-ray negative for fracture. Seen by orthopedics not for any further intervention. Also seen by general surgery for the left eye laceration. Not further further intervention. On NovoLog 70/30. Sugars still running on the higher side. Adjust dose. Blood pressure still running on the higher side. Will add Lopressor 25 twice daily. Pending MRI brain. Increase activity as tolerated supervised. January 27: Saw the patient this morning. Accu-Cheks images are running high. Further adjustment of NovoLog 70/30 was done. MRI still pending. 2D echo did not show any thrombus. Bubble study was negative. Left-sided weakness remains. PT OT is recommending rehab. Increase Lopressor to 50 mg twice daily for blood pressure. Consult dietitian January 28: Saw the patient this afternoon. Patient's brother is visiting. Insulin dose was further adjusted. Spoke clearly to social and human services assistant Charles. Patient has no insurance. Hence patient will want to go to his sister's place. Patient required a walker. Patient wishes to get discharge tomorrow. MRI brain confirms stroke involving the right thalamus and the right medial temporal lobe. January 29: Patient will be getting discharged to his sisters. Spoke to social and human services assistant Charles. Prescription will be sent to a local pharmacy in the [facility]. Indigent fund to be used. Patient was told importance of using his insulin. Questions answered. He will follow-up with his PCP and neurology outpatient. Accu-Cheks much better. Social history: Lives alone. Does not smoke. For last 1 year close to drinking 1 pitcher of beer a day. Prior to that was drinking 2-3 beers a day. Physical examination: VITAL SIGNS: 98.1, 83, 18, 125 x 68, 99% room air GENERAL: Up in a chair, comfortable EYES: Pupils equal. Conjunctiva maria eugenia l. Mild laceration left eye with some bruising HEENT: External appearance of nose and ears normal, oral cavity grossly normal. NECK: JVD not raised; masses not palpable. HEART: First and second heart sounds are normal; no edema. LUNGS: Respiratory rate normal; clear to auscultation. ABDOMEN: Soft, nontender, liver spleen not palpable, no masses palpable. PSYCH: Alert and oriented x3; mood and affect maria eugenia l. MUSCULOSKELETAL:No Clubbing/cyanosis;muscles-grossly intact NEUROLOGICAL: Some altered sensation on the left side of the face. Power in the left arm 4/5. Left leg 4/5.. INVESTIGATIONS, reviewed in the clinical context: MRI brain without contrast [January 30]: Acute severe involving the right thalamus and the right medial temporal lobe 2D echocardiogram: EF 55 to 60%. No wall motion abnormality. Negative for thrombus. Negative bubble study January 26: White count 8.9 hemoglobin 16.9. LDL 86.5 Carotid Doppler: Unremarkable January 25: White count 8.5 hemoglobin 16.1 platelets 229 sodium 130 potassium 3.8 creatinine 0.75 blood glucose 347 Troponin I 0.012 x 3 TSH 3.0 EKG tracing personally reviewed by me-sinus rhythm. Nonspecific ST-T wave ayala es. Chest x-ray film personally reviewed by me-unremarkable CT brain: Unremarkable Assessment plan: -Acute stroke involving the right thalamus and the right medial temporal lobe. Likely ischemic Aspirin. Plavix Lipitor. Carotid Doppler-unremarkable MRI as above 2D echo.-Negative for thrombus and negative bubble study Neurology following PT OT. Follow-up outpatient with Dr. Regulo Gramajo. -Essential hypertension, better Lisinopril hydrochlorothiazide 20/12.5 twice daily. Lopressor 50 mg twice daily -Diabetes mellitus type 2, uncontrolled Patient not been taking his medications/insulin regularly. Does takes sometimes from his mother. Increase NovoLog 70/30 , 38 units with breakfast and supper and 22 units with lunch Glucophage Seen by dietitian -Acute gait dysfunction from stroke PT OT Because of financial issues no insurance patient is decided to go home. After discussing with the social and human services assistant. -Hyperlipidemia Lipitor -Obesity BMI 38.1 Seen by dietitian -Noncompliance with medication due to financial issues Seen by social and human services assistant er Disposition: Home Past Medical History Past Medical History: Diabetes Mellitus, Hyperlipidemia, Hypertension, Skin Disorder, Sleep Apnea/CPAP/BIPAP Additional Past Medical History / Comment(s): ECZEMA. NO TX FOR SLEEP APNEA YET. History of Any Multi-Drug Resistant Organisms: None Reported Additional Past Surgical History / Comment(s): DENTAL IMPLANTS Past Anesthesia/Blood Transfusion Reactions: Motion Sickness Past Psychological History: No Psychological Hx Reported Smoking Status: Never smoker Past Alcohol Use History: Abuse, Daily Past Drug Use History: None Reported Plan - Discharge Summary Discharge Rx Participant: Yes New Discharge Prescriptions: New Aspirin 81 mg PO DAILY tab Atorvastatin [Lipitor] 80 mg PO HS #30 tab Metoprolol Tartrate [Lopressor] 50 mg PO BID #60 tab Insuln Asp Prt/Insulin Aspart [NovoLOG MIX 70-30 VIAL] 38 unit SQ AC-BID #1 each Lisinopril-Hctz 20-12.5 mg [Zestoretic 20-12.5] 1 each PO BID #60 tab metFORMIN HCL [Glucophage] 1,000 mg PO BID-W/MEALS #60 tab Naproxen [Naprosyn] 250 mg PO TID PRN #30 tab PRN Reason: Pain Insuln Asp Prt/Insulin Aspart [NovoLOG MIX 70-30 VIAL] 22 unit SQ AC-LUNCH #1 each Clopidogrel [Plavix] 75 mg PO DAILY #21 tab Discharge Medication List Aspirin 81 mg PO DAILY tab 01/30/24 [Rx] Atorvastatin [Lipitor] 80 mg PO HS #30 tab 01/30/24 [Rx] Clopidogrel [Plavix] 75 mg PO DAILY #21 tab 01/30/24 [Rx] Insuln Asp Prt/Insulin Aspart [NovoLOG MIX 70-30 VIAL] 22 unit SQ AC-LUNCH #1 each 01/30/24 [Rx] Insuln Asp Prt/Insulin Aspart [NovoLOG MIX 70-30 VIAL] 38 unit SQ AC-BID #1 each 01/30/24 [Rx] Lisinopril-Hctz 20-12.5 mg [Zestoretic 20-12.5] 1 each PO BID #60 tab 01/30/24 [Rx] Metoprolol Tartrate [Lopressor] 50 mg PO BID #60 tab 01/30/24 [Rx] Naproxen [Naprosyn] 250 mg PO TID PRN #30 tab 01/30/24 [Rx] metFORMIN HCL [Glucophage] 1,000 mg PO BID-W/MEALS #60 tab 01/30/24 [Rx] Follow up Appointment(s)/Referral(s): Hai Ray DO [Primary Care Provider] - 1-2 days Jenna Godoy MD [REFERRING] - 1 Week Awais Rodarte MD [STAFF PHYSICIAN] - As Needed Activity/Diet/Wound Care/Special Instructions: indigent fund for meds Discharge/Stand Alone Forms: AA Meetings [facility] - [facility], AA Meetings [place], [facility], Outpatient Counseling, In Substance Abuse Facilities, Outpatient Therapy List Discharge Disposition: HOME SELF-CARE
== END 2024-01-30 15:37 | disposition home health service (06) | DRG 65 ==
LOC: EC 02:19 → 3SCARD 06:41 → OBSVTOIN 06:42 → 3SCARD 16:46
PROVIDERS: ADMIT Hospitalist; ATTEND Hospitalist
DX: I63.9 Cerebral infarction, unspecified (principal); G81.94 Hemiplegia, unspecified affecting left nondominant side; E11.65 Type 2 diabetes mellitus with hyperglycemia; E66.01 Morbid (severe) obesity due to excess calories; E78.5 Hyperlipidemia, unspecified; I10 Essential (primary) hypertension; M25.511 Pain in right shoulder; R26.2 Difficulty in walking, not elsewhere classified; G47.30 Sleep apnea, unspecified; M19.011 Primary osteoarthritis, right shoulder; S01.112A Laceration without foreign body of left eyelid and periocular area, initial encounter; W19.XXXA Unspecified fall, initial encounter; Y92.009 Unspecified place in unspecified non-institutional (private) residence as the place of occurrence of the external cause; Y92.239 Unspecified place in hospital as the place of occurrence of the external cause; T38.3X6A Underdosing of insulin and oral hypoglycemic [antidiabetic] drugs, initial encounter; T46.5X6A Underdosing of other antihypertensive drugs, initial encounter; T45.526A Underdosing of antithrombotic drugs, initial encounter; Z91.120 Patient's intentional underdosing of medication regimen due to financial hardship; Z59.71 Insufficient health insurance coverage; Z59.86 Financial insecurity
CPT/HCPCS: 36415; 70450; 70551; 71046; 80053; 80061; 82550; 83036; 84443; 84484; 85025; 85027; 85610; 85730; 93005; 93306; 93880; 96361; 96374; 96375; 96376; 99291